=== PATIENT | male | born 1955 | race Caucasian/White ===

== ENCOUNTER 2017-03-10 14:47 | Inpatient (IN) | payer OTHER ==
[~2017-03-10] VITALS: Ht 188 cm; Wt 116.6 kg
[2017-03-10 14:50] VITALS: BP_SYST 137
[2017-03-10] MEDS ORDERED: KETOROLAC TROMETHAMINE 30 MG VIAL IVP ONE (15:15)
[2017-03-10] MEDS ORDERED: ASPIRIN 81 MG TAB.CHEW PO ONE (15:15)
[2017-03-10] MEDS ORDERED: ONDANSETRON HCL 4 MG/2 ML VIAL IVP ONE (15:15)
[2017-03-10] MEDS ORDERED: NACL 0.9% 1,000 ML IV ONE (15:15)
[2017-03-10 15:49] LABS: BASOPHILS % (AUTO) 0.6 % (0.0-2.0); EOSINOPHILS # (AUTO) 0.2 K/uL (0.0-0.4); EOSINOPHILS % (AUTO) 2.8 % (0.0-4.0); HEMATOCRIT 40.7 % (36-54); HEMOGLOBIN 13.3 g/dL (14.0-18.0); LYMPHOCYTES # (AUTO) 1.4 K/uL (1.0-5.5); LYMPHOCYTES % (AUTO) 23.7 % (20.5-51.5); MEAN CORPUSCULAR HEMOGLOBIN 28 pg (27-31); MEAN CORPUSCULAR HGB CONC 33 % (32-36); MEAN CORPUSCULAR VOLUME 85 fL (79.0-98.0); MONOCYTES # (AUTO) 0.3 K/uL (0.0-1.0); MONOCYTES % (AUTO) 5.8 % (1.7-9.3); NEUTROPHILS # (AUTO) 3.8 K/uL (1.8-7.7); NEUTROPHILS % (AUTO) 67.1 % (40.0-70.0); PLATELET COUNT (AUTO) 212 K/uL (130-430); RED BLOOD CELL COUNT(AUTO) 4.79 MIL/uL (4.2-6.2); RED CELL DISTRIBUTION WIDTH 13.9 % (9.0-15.0); WHITE BLOOD COUNT (AUTO) 5.7 K/uL (4.8-10.8)
[2017-03-10 16:01] LABS: CALCIUM 8.5 mg/dL (8.4-11.0); CREATININE 0.66 mg/dL (0.55-1.30); POTASSIUM 3.8 mmol/L (3.5-5.1)
[2017-03-10 16:08] LABS: ALBUMIN 3.4 g/dL (3.4-4.8); TOTAL BILIRUBIN 0.5 mg/dL (0.0-1.0)
[2017-03-10 16:27] LABS: PROTHROMBIN TIME 10.1 SECS (9.5-12.5)
[2017-03-10 17:11] LABS: BILIRUBIN,URINE NEGATIVE (NEGATIVE); BLOOD, URINE NEGATIVE (NEGATIVE); CLARITY/URINE CLEAR (CLEAR); COLOR,URINE YELLOW (YELLOW); GLUCOSE,URINE 3+ (NEGATIVE); KETONES,URINE 1+ (NEGATIVE); LEUKOCYTE ESTERASE ,URINE NEGATIVE (NEGATIVE); NITRITE, URINE NEGATIVE (NEGATIVE); PH,URINE 7.5 (5.0-8.0); PROTEIN URINE NEGATIVE (NEGATIVE)
[2017-03-10 17:38] LABS: BACTERIA,URINE FEW /HPF (None Seen); MUCUS,URINE None Seen /LPF (None Seen); RBC,URINE NONE SEEN /HPF (0-3); WBC,URINE 0-3 /HPF (0-3)
[2017-03-10] MEDS ORDERED: POTASSIUM CHLORIDE 20 MEQ TAB.PRT.SR PO PRN (19:30)
[2017-03-10] MEDS ORDERED: MORPHINE 2 MG/ML INJ. SYRINGE IVP PRN ×2 (19:30)
[2017-03-10] MEDS ORDERED: MAGNESIUM SULFATE 50 ML IV PRN (19:30)
[2017-03-10] MEDS ORDERED: ZOLPIDEM TARTRATE 5 MG TABLET PO PRN (19:30)
[2017-03-10] MEDS ORDERED: ACETAMINOPHEN 325 MG TABLET PO PRN (19:30)
[2017-03-10] MEDS ORDERED: DOCUSATE SODIUM 100 MG CAPSULE PO PRN (19:30)
[2017-03-10] MEDS ORDERED: DEXTROSE 50% JECT 50 ML DISP.SYRIN IVP PRN (19:30)
[2017-03-10] MEDS ORDERED: LORazepam 2 MG/ML VIAL IVP PRN (19:30)
[2017-03-10] MEDS ORDERED: ONDANSETRON HCL 4 MG/2 ML VIAL IVP PRN (19:30)
[2017-03-10 19:45] VITALS: BP_SYST 126
[2017-03-10] MEDS ORDERED: FLU VACC QS 2017-18(36MOS+)/PF 0.5 ML/SYR SYRINGE I.M. PRN (20:15)
[2017-03-10] MEDS ORDERED: METOCLOPRAMIDE HCL 10 MG/2 ML VIAL IVP ONE (20:45)
[2017-03-10] MEDS: HEPARIN SODIUM,PORCINE 5000 UNITS/ML VIAL SUBCUT SCH (21:36)
[2017-03-10] MEDS: INSULIN ASPART 100 UNITS/ML, 10 ML VIAL (NovoLOG) SUBCUT PRN (21:42)
[2017-03-11 00:41] VITALS: BP_SYST 104
[2017-03-11 04:19] VITALS: BP_SYST 98
[2017-03-11] MEDS ORDERED: METOCLOPRAMIDE HCL 10 MG/2 ML VIAL IVP SCH (06:00)
[2017-03-11] MEDS: INSULIN ASPART 100 UNITS/ML, 10 ML VIAL (NovoLOG) SUBCUT PRN ×2 (06:12→11:22)
[2017-03-11 06:39] LABS: BASOPHILS # (AUTO) 0.1 K/uL (0.0-0.2); BASOPHILS % (AUTO) 2.9 % (0.0-2.0); EOSINOPHILS # (AUTO) 0.2 K/uL (0.0-0.4); EOSINOPHILS % (AUTO) 4.2 % (0.0-4.0); HEMOGLOBIN 12.4 g/dL (14.0-18.0); LYMPHOCYTES # (AUTO) 1.4 K/uL (1.0-5.5); LYMPHOCYTES % (AUTO) 27.1 % (20.5-51.5); MEAN CORPUSCULAR HEMOGLOBIN 29 pg (27-31); MEAN CORPUSCULAR HGB CONC 34 % (32-36); MEAN CORPUSCULAR VOLUME 86 fL (79.0-98.0); MONOCYTES # (AUTO) 0.4 K/uL (0.0-1.0); MONOCYTES % (AUTO) 8.2 % (1.7-9.3); NEUTROPHILS # (AUTO) 3.1 K/uL (1.8-7.7); NEUTROPHILS % (AUTO) 57.6 % (40.0-70.0); PLATELET COUNT (AUTO) 179 K/uL (130-430); RED BLOOD CELL COUNT(AUTO) 4.33 MIL/uL (4.2-6.2); RED CELL DISTRIBUTION WIDTH 14.1 % (9.0-15.0); WHITE BLOOD COUNT (AUTO) 5.2 K/uL (4.8-10.8)
[2017-03-11 07:36] LABS: ANION GAP 4 (5-15); CALCIUM 8.8 mg/dL (8.4-11.0); CHLORIDE 106 mmol/L (98-107); CREATININE 0.73 mg/dL (0.55-1.30); GLUCOSE 281 mg/dL (70-99); POTASSIUM 4.5 mmol/L (3.5-5.1); SODIUM SERUM 140 mmol/L (136-145); UREA NITROGEN, BLOOD 20 mg/dL (8-21)
[2017-03-11 07:39] LABS: GFR AFRICAN AMERICAN 140 mL/min (>90)
[2017-03-11 08:03] VITALS: BP_SYST 124
[2017-03-11] MEDS ORDERED: MILK OF MAGNESIA 30 ML UDC PO ONE (08:15)
[2017-03-11] MEDS ORDERED: SSNOVOLOG SUBCUT (08:25)
[2017-03-11] MEDS ORDERED: METO-290 PO (08:25)
[2017-03-11] MEDS: HEPARIN SODIUM,PORCINE 5000 UNITS/ML VIAL SUBCUT SCH (08:51)
[2017-03-11 09:41] VITALS: BP_SYST 124
[2017-03-11 12:41] VITALS: BP_SYST 129
== END 2017-03-11 12:27 | disposition home or self-care (01) | DRG 48 ==
LOC: SED 14:47 → STU 19:08
PROVIDERS: ADMIT General Practice; ATTEND General Practice
DX: E11.43 Type 2 diabetes mellitus with diabetic autonomic (poly)neuropathy (principal); E11.65 Type 2 diabetes mellitus with hyperglycemia; K31.84 Gastroparesis; E66.9 Obesity, unspecified; K59.00 Constipation, unspecified; Z68.33 Body mass index [BMI] 33.0-33.9, adult
CPT/HCPCS: 36415; 70450-TC; 71010; 80048; 80053; 81000-TC; 82962; 83690-TC; 83735-TC; 84484; 85025; 85610-TC; 85730-TC; 93005; 96361; 96374; 96375; 99285; J1644; J1815; J1885; J2405; J2765; J7030; Q2037

== ENCOUNTER 2018-05-10 20:52 | Inpatient (IN) | payer OTHER ==
[~2018-05-10] VITALS: Ht 182.9 cm; Wt 94.8 kg
[~2018-05-10 20:52] MED LIST: METO-290 PO; SSNOVOLOG SUBCUT
--- NOTE | 2018-05-10 21:04 | NUR ---
Placed in room 08 . Placed on hospital monitor, blood pressure machine and pulse oximeter. To gown for exam. Side rails up.
[2018-05-10 21:05] VITALS: BP_SYST 88
--- NOTE | 2018-05-10 21:06 | NUR ---
Pt was brought in by family c/o of weakness, dizziness, and hx of falls. Pt is AAO x 4 and was wheeled into ED because of feeling weak. Pt denies N/V or fever. No other injuries/complaints per patient or noted.
--- NOTE | 2018-05-10 21:08 | NUR ---
ER Dr. Woodard at bedside examining patient.
--- NOTE | 2018-05-10 21:15 | NUR ---
# 18 gauge angiocath placed to RAC. Use of asceptic technique. Opsite placed over site. Blood return noted. Blood for lab drawn from site. Flushed with 10 cc of normal saline. No evidence of infiltration noted. Patient tolerated well.
[2018-05-10] MEDS ORDERED: NACL 0.9% 1,000 ML IV ONE ×3 (21:30→22:15)
--- NOTE | 2018-05-10 21:40 | NUR ---
Pt to CT via stretcher accompanied by ACLS RN.
[2018-05-10 21:43] LABS: BASOPHILS # (AUTO) 0.1 K/uL (0.0-0.2); BASOPHILS % (AUTO) 0.5 % (0.0-2.0); EOSINOPHILS # (AUTO) 0.2 K/uL (0.0-0.4); EOSINOPHILS % (AUTO) 1.7 % (0.0-4.0); HEMATOCRIT 38.6 % (36-54); HEMOGLOBIN 12.6 g/dL (14.0-18.0); LYMPHOCYTES # (AUTO) 1.8 K/uL (1.0-5.5); LYMPHOCYTES % (AUTO) 14.7 % (20.5-51.5); MEAN CORPUSCULAR HEMOGLOBIN 28 pg (27-31); MEAN CORPUSCULAR HGB CONC 33 % (32-36); MEAN CORPUSCULAR VOLUME 86 fL (79.0-98.0); MONOCYTES # (AUTO) 0.7 K/uL (0.0-1.0); MONOCYTES % (AUTO) 5.8 % (1.7-9.3); NEUTROPHILS # (AUTO) 9.4 K/uL (1.8-7.7); NEUTROPHILS % (AUTO) 77.3 % (40.0-70.0); PLATELET COUNT (AUTO) 245 K/uL (130-430); RED BLOOD CELL COUNT(AUTO) 4.49 MIL/uL (4.2-6.2); RED CELL DISTRIBUTION WIDTH 14.4 % (9.0-15.0); WHITE BLOOD COUNT (AUTO) 12.2 K/uL (4.8-10.8)
--- NOTE | 2018-05-10 21:45 | NUR ---
PT ON PORTABLE MONITORING TO CT. ACCOMPANIED BY RN. NO S/S OF ACUTE DISTRESS. 2L NS RUNNING PER MD.
--- NOTE | 2018-05-10 21:51 | NUR ---
Pt returned from CT in stable condition.
[2018-05-10 21:52] LABS: CALCIUM 10.1 mg/dL (8.4-11.0); POTASSIUM 4.5 mmol/L (3.5-5.1)
[2018-05-10 21:53] LABS: CREATININE 1.61 mg/dL (0.55-1.30)
[2018-05-10 21:57] LABS: ALBUMIN 3.8 g/dL (3.4-4.8); TOTAL BILIRUBIN 0.5 mg/dL (0.0-1.0)
[2018-05-10 22:02] LABS: PROTHROMBIN TIME 10.5 SECS (9.5-12.5)
--- NOTE | 2018-05-10 22:02 | NUR ---
PT CAME BACK FROM CT SCAN, WELL TOLERATED. BACK ON ER MONITORING. STARTING 3RD LITER NS AT 100ML / HR. DAUGHTER AT BEDSIDE, INFORMED BY STAFF
--- NOTE | 2018-05-10 22:04 | NUR ---
X-ray at bedside.
--- NOTE | 2018-05-10 22:12 | NUR ---
Patient states he is full code
[2018-05-10] MEDS ORDERED: VANCOMYCIN HCL 1,000 MG in NS 250 ML IV ONE (22:15)
[2018-05-10] MEDS ORDERED: VANCOMYCIN HCL 1000 MG/VIAL IV ONE (22:16)
[2018-05-10] MEDS ORDERED: CLOP300T2 PO (22:23)
[2018-05-10] MEDS ORDERED: MIDO10TA PO (22:23)
[2018-05-10] MEDS ORDERED: METF1000 PO (22:23)
[2018-05-10] MEDS ORDERED: ATOR40TA68 PO (22:23)
[2018-05-10] MEDS ORDERED: MES60 PO (22:23)
[2018-05-10] MEDS ORDERED: SITA100T11 PO (22:23)
[2018-05-10] MEDS ORDERED: XALEYE RIGHT EYE (22:23)
[2018-05-10] MEDS ORDERED: LORA10TA7 PO (22:23)
[2018-05-10] MEDS ORDERED: ASPI-1153 PO (22:24)
[2018-05-10] MEDS ORDERED: MULT-1117 PO (22:24)
[2018-05-10] MEDS ORDERED: LISI-600 PO (22:24)
--- NOTE | 2018-05-10 22:24 | NUR ---
Medication reconciliation completed with information provided by Patient. Any prior medication reconciliation on file was reviewed and corrected.
[2018-05-10] MEDS ORDERED: PIPERACILLIN/TAZO 3.375 GM in NS 50 ML IV ONE (22:30)
[2018-05-10] MEDS ORDERED: METOCLOPRAMIDE HCL 10 MG/2 ML VIAL IVP PRN (22:30)
[2018-05-10] MEDS ORDERED: INSULIN ASPART 100 UNITS/ML, 10 ML VIAL (NovoLOG) SUBCUT PRN (22:30)
[2018-05-10] MEDS: NACL 0.9% 1,000 ML IV SCH (22:30)
[2018-05-10] MEDS ORDERED: ACETAMINOPHEN 325 MG TABLET PO PRN (22:30)
[2018-05-10] MEDS ORDERED: PIPERACILLIN/TAZOBACTAM 3.375 GM/VIAL (ZOSYN) IV ONE (22:31)
--- NOTE | 2018-05-10 22:46 | NUR ---
Patient will be admitted to care of Dr. Brooke. Admitted to Telemetry unit. Will go to room 107 B. Belongings list completed. Summary report printed. Report will be given at bedside.
--- NOTE | 2018-05-10 22:47 | NUR ---
Transfer to Telemetry via ACLS protocol. Licensed nurse present. IV present no signs or symptoms of infiltration.
[2018-05-10 22:56] VITALS: BP_SYST 120
--- NOTE | 2018-05-10 22:56 | NUR ---
ADMISSION NOTE Received patient from ER via gurney, received report from RN. Patient admitted with diagnosis of hypotension, possible sepsis, hypovolemia. Patient oriented to hospital routine, call light, toileting and safety-patient verbalized understanding.
--- NOTE | 2018-05-10 23:30 | NUR ---
IVF PATIENT CAME WITH NS @ 100 ML/HR #3 BAG FROM ER. IV LINE INTACT. PATIENT MADE AWARE URINE NEEDED FOR CULTURE. PLACED CALL LIGHT WITH IN REACH. BED IN LOWEST LOCKED POSITION WITH ALARM ON.
[2018-05-11 00:46] VITALS: BP_SYST 131
--- NOTE | 2018-05-11 02:00 | NUR ---
ROUNDS PATIENT RESTING IN BED. BREATHING UNLABORED ON ROOM AIR. BED ALARM ON.
--- NOTE | 2018-05-11 04:00 | NUR ---
ROUNDS PATIENT RESTING IN BED. NO CHANGE IN CONDITION NOTED. BED ALARM ON. CALL LIGHT WITH IN REACH.
[2018-05-11 05:42] LABS: BASOPHILS # (AUTO) 0.1 K/uL (0.0-0.2); BASOPHILS % (AUTO) 0.9 % (0.0-2.0); EOSINOPHILS # (AUTO) 0.1 K/uL (0.0-0.4); HEMATOCRIT 35.6 % (36-54); HEMOGLOBIN 11.7 g/dL (14.0-18.0); LYMPHOCYTES # (AUTO) 1.9 K/uL (1.0-5.5); LYMPHOCYTES % (AUTO) 18.1 % (20.5-51.5); MEAN CORPUSCULAR HEMOGLOBIN 28 pg (27-31); MEAN CORPUSCULAR HGB CONC 33 % (32-36); MEAN CORPUSCULAR VOLUME 86 fL (79.0-98.0); MONOCYTES # (AUTO) 0.7 K/uL (0.0-1.0); MONOCYTES % (AUTO) 7.2 % (1.7-9.3); NEUTROPHILS # (AUTO) 7.5 K/uL (1.8-7.7); NEUTROPHILS % (AUTO) 72.8 % (40.0-70.0); PLATELET COUNT (AUTO) 206 K/uL (130-430); RED BLOOD CELL COUNT(AUTO) 4.15 MIL/uL (4.2-6.2); RED CELL DISTRIBUTION WIDTH 14.3 % (9.0-15.0); WHITE BLOOD COUNT (AUTO) 10.3 K/uL (4.8-10.8)
[2018-05-11 06:21] LABS: CALCIUM 9.1 mg/dL (8.4-11.0); CREATININE 1.22 mg/dL (0.55-1.30); POTASSIUM 4.2 mmol/L (3.5-5.1)
--- NOTE | 2018-05-11 06:38 | NUR ---
CLOSING NOTES PATIENT RESTING IN BED. BREATHING UNLABORED. IVF INFUSING ORDERED. IV LINE INTACT. PATIENT REMINDED OF URINE SPECIMEN NEEDED TO SEND TO LAB FOR CULTURE. PER PATIENT HE DOES NOT HAVE THE FEELING TO URINATE AT THIS TIME. PATIENT BLADDER AREA SOFT AND NOT DISTENDED AND PATIENT DENIES PAIN WHEN PRESSURE APPLIED. PATIENT NEEDS ATTENDED. CALL LIGHT WITH IN REACH. BED IN LOWEST LOCKED POSITION WITH ALARM ON.
--- NOTE | 2018-05-11 07:20 | NUR ---
OPENING NOTE At initial assessment, patient is awake, alert and oriented x4. Denies any pain/discomfort at this time. Breathing even and unlabored, patient on room air. IV site on RAC 18 G and L wrist 18 patent and intact. NS running at 100 ml/hr. Safety and fall precautions in place, bed is in lowest position and locked, side rails up x3, call light within reach, will continue to monitor.
[2018-05-11 08:00] VITALS: BP_SYST 123
[2018-05-11] MEDS: NACL 0.9% 1,000 ML IV SCH ×2 (08:39→17:09)
[2018-05-11 11:01] LABS: BILIRUBIN,URINE NEGATIVE (NEGATIVE); BLOOD, URINE NEGATIVE (NEGATIVE); CLARITY/URINE CLEAR (CLEAR); COLOR,URINE YELLOW (YELLOW); GLUCOSE,URINE NEGATIVE (NEGATIVE); KETONES,URINE TRACE (NEGATIVE); LEUKOCYTE ESTERASE ,URINE NEGATIVE (NEGATIVE); NITRITE, URINE NEGATIVE (NEGATIVE); PH,URINE 5.5 (5.0-8.0); PROTEIN URINE NEGATIVE (NEGATIVE); UROBILINOGEN,URINE 0.2 (0.2-1.0)
[2018-05-11 11:07] VITALS: BP_SYST 126
[2018-05-11 11:13] LABS: BARBITURATE, URINE NEGATIVE (NEG <=200); BENZODIAZEPINE, URINE NEGATIVE (NEG <=150); CANNABINOID, URINE NEGATIVE (NEG <=50); COCAINE, URINE NEGATIVE (NEG <=150); METHAMPHETAMINES SCREEN,URINE NEGATIVE (NEG <=500); OPIATE, URINE NEGATIVE (NEG <=100); PHENCYCLIDINE SCREEN,URINE NEGATIVE (NEG <=25); UR TRICYCLIC ANTIDEPRESSANTS NEGATIVE (NEG <=300); URINE AMPHETAMINE NEGATIVE (NEG <=500); URINE METHADONE NEGATIVE (NEG <=200); URINE OXYCODONE SCREEN NEGATIVE (NEG <=100); URINE PROPOXYPHENE SCREEN NEGATIVE (NEG <=300)
--- NOTE | 2018-05-11 11:25 | NUR ---
Nutrition Update Micah Scale 17 noted. Pt admitted for hypotension, possible sepsis, hypovolemia. Diet: [facility] BMI: 28.4 kg/m2 RD to follow per nutrition care standards.
--- NOTE | 2018-05-11 13:35 | NUR ---
ROUNDS Patient is asleep, no respiratory distress noted. IVF infusing as ordered. IV site patent and intact. AM meds tolerated well. Safety and fall precautions in place. Call light within reach, will continue to monitor.
[2018-05-11] MEDS ORDERED: MIDODRINE HCL 5 MG TABLET (PROAMATINE) PO ONE (13:45)
[2018-05-11] MEDS ORDERED: PYRIDOSTIGMINE BROMIDE 60 MG TABLET PO ONE (13:45)
--- NOTE | 2018-05-11 13:45 | NUR ---
AT BEDSIDE DR. Brooke at bedside to examine the patient.
--- NOTE | 2018-05-11 16:20 | NUR ---
ROUNDS Patient is watching TV, in stable condition, no respiratory distress noted. IVF infusing as ordered. IV site patent and intact. AM meds tolerated well. Safety and fall precautions in place. Call light within reach, will continue to monitor.
[2018-05-11 17:00] VITALS: BP_SYST 138
--- NOTE | 2018-05-11 17:06 | NUR ---
Discharge Planning/Postdoctoral Scientist MECHANICAL OXIDIZER conducted a Discharge Plan Assessment MECHANICAL OXIDIZER met with patient at bedside. Patient stated his health has been deteriorating for a year and had just decided, on the insistence of his son and daughter, to move in with his daughter and her 5 year old son. Address: [address] [place] His daughter is disabled but patient stated she daniel very well. His son is supportive and lives in [place]. Patient has 19 hours paid SS hours and a caregiver. MECHANICAL OXIDIZER discussed with patient his [employer] care which include a three year plan of injections in his left eye to save his vision. He is blind in his right eye. Patient stated he is exploring a new capitated [facility] plan as he will no longer be in [facility]. Suggested working with the Gl [employer]ant to assure continuity of care. MECHANICAL OXIDIZER provided a list of [facility] as a last resort for immediate follow up. Patient uses a FWW at home. Discussed applying for correction disability and Medicare benefits, and looking at [facility] or other snf options. MECHANICAL OXIDIZER provided patient with Social Service contact information. Postdoctoral Scientist/Case Management/Discharge Planning will remain available.
--- NOTE | 2018-05-11 18:20 | NUR ---
CLOSING NOTE Patient is awake, alert and oriented x4, denies any pain/discomfort at this time. Breathing even and unlabored. IV site remains patent and intact, IVF infusing as ordered. No further needs at this time. Safety and fall precautions observed throughout the shift, call light within reach. All needs met and anticipated throughout the shift, will endorse plan of care.
--- NOTE | 2018-05-11 19:25 | NUR ---
OPENING NOTE Received patient awake, AOx4 sitting upright in bed in no sign of distress and watching t.v. IV fluids infusing as ordered via 18G RAC. SL 18G IV Lt wrist. Daughter visiting at bedside. Bed is locked to lowest position, two side rails up, bed alarm on. Instructed on use of call light. Will monitor.
[2018-05-11 20:10] VITALS: BP_SYST 120
--- NOTE | 2018-05-11 20:35 | NUR ---
Rounds Patient was awake and administered scheduled medications. Side effects explained and he verbalized understanding. Fingers stick glucose test result was 141 and no coverage was due. He requested if the lights could be turned off so he can rest. No further needs. Will monitor.
[2018-05-11] MEDS ORDERED: ATORVASTATIN 20 MG TABLET PO SCH (21:00)
[2018-05-11] MEDS ORDERED: LATANOPROST 2.5 ML DROPS (XALATAN) RIGHT EYE SCH (21:00)
--- NOTE | 2018-05-11 22:05 | NUR ---
ROUNDS Patient awake and asked for assistance to the restroom. He is unsteady by self and was assisted; he prefers to hold the IV pole as I stand by his side to support his back. He returned to bed and had no further needs. Safety precautions in place and call light near. Will monitor.
--- NOTE | 2018-05-11 23:30 | NUR ---
ROUNDS During vital sign assessment patient reported pain to the nurse assistant analyst. I came to assess and he stated that it was tolerable. I let him know there is medication ordered/available for pain and he refused medication stating it's tolerable and added, if needs medication he will call.
[2018-05-12 00:37] VITALS: BP_SYST 138
--- NOTE | 2018-05-12 02:20 | NUR ---
ROUNDS Patient is sleeping, symmetrical rise and fall of chest, nonlabored breathing. Bed locked to lowest position and call light w/in reach. Will monitor.
--- NOTE | 2018-05-12 04:15 | NUR ---
NOTES IV fluid bag complete and replaced with new bag as ordered. Patient momentarily awakened and he indicated he had no further needs. Safety precautions in place, call light near. Will monitor.
[2018-05-12] MEDS: NACL 0.9% 1,000 ML IV SCH ×2 (04:19→13:58)
--- NOTE | 2018-05-12 06:30 | NUR ---
closing note Patient is sleeping, no sign of distress noted, nonlabored breathing. Morning fingerstick result was 141 and no coverage was due. He had no further needs, and wanted to sleep. Safety precautions in place, call light near and lights are low. Will endorse care to morning nurse.
--- NOTE | 2018-05-12 07:15 | NUR ---
OPENING NOTE At initial assessment, patient is sleeping comfortably in bed, no s/s of acute distress or discomfort. Breathing even and unlabored. IV site patent and intact, NS running at 100 ml/hr as ordered. Safety and fall precautions in place, bed is in lowest position and locked, alarm on, side rails up x2, call light within reach, will continue to monitor.
[2018-05-12 07:58] VITALS: BP_SYST 155
[2018-05-12 08:11] LABS: HEMOGLOBIN 11.8 g/dL (14.0-18.0); MEAN CORPUSCULAR VOLUME 86 fL (79.0-98.0); RED BLOOD CELL COUNT(AUTO) 4.19 MIL/uL (4.2-6.2); WHITE BLOOD COUNT (AUTO) 7.3 K/uL (4.8-10.8)
[2018-05-12 08:12] LABS: BASOPHILS % (AUTO) 0.6 % (0.0-2.0); EOSINOPHILS # (AUTO) 0.6 K/uL (0.0-0.4); EOSINOPHILS % (AUTO) 8.1 % (0.0-4.0); LYMPHOCYTES # (AUTO) 2.1 K/uL (1.0-5.5); MEAN CORPUSCULAR HEMOGLOBIN 28 pg (27-31); MEAN CORPUSCULAR HGB CONC 33 % (32-36); MONOCYTES # (AUTO) 0.4 K/uL (0.0-1.0); MONOCYTES % (AUTO) 5.1 % (1.7-9.3); NEUTROPHILS # (AUTO) 4.2 K/uL (1.8-7.7); NEUTROPHILS % (AUTO) 57.2 % (40.0-70.0); PLATELET COUNT (AUTO) 189 K/uL (130-430); RED CELL DISTRIBUTION WIDTH 14.6 % (9.0-15.0)
[2018-05-12 08:27] LABS: CREATININE 0.95 mg/dL (0.55-1.30); POTASSIUM 4.5 mmol/L (3.5-5.1)
[2018-05-12 08:28] LABS: ALBUMIN 3.3 g/dL (3.4-4.8); THYROID STIMULATING HORMONE 1.13 uIu/mL (0.34-4.82); TOTAL BILIRUBIN 0.3 mg/dL (0.0-1.0)
[2018-05-12] MEDS ORDERED: MIDODRINE HCL 5 MG TABLET (PROAMATINE) PO SCH (09:00)
[2018-05-12] MEDS ORDERED: PYRIDOSTIGMINE BROMIDE 60 MG TABLET PO SCH (09:00)
[2018-05-12] MEDS ORDERED: ASPIRIN 81 MG TABLET(ECOTRIN) PO SCH (09:00)
[2018-05-12] MEDS ORDERED: CLOPIDOGREL BISULFATE 75 MG TABLET PO SCH (09:00)
--- NOTE | 2018-05-12 12:21 | NUR ---
ROUNDS Patient is awake, eating lunch at this time. No c/o pain/discomfort at this time. Breathing even and unlabored. AM meds taken this morning and tolerated well. IV site patent and intact, IVF infusing as ordered. Safety and fall precautions in place, call light within reach, will continue to monitor.
[2018-05-12 12:43] VITALS: BP_SYST 144
--- NOTE | 2018-05-12 14:45 | NUR ---
Dietitian Recommendations * Recommend continuing [facility] diet per LP, RD Please refer to Nutrition Assessment for details.
--- NOTE | 2018-05-12 14:47 | NUR ---
ROUNDS Patient is sleeping, no s/s of acute distress/discomfort. No respiratory distress noted. IVF infusing as ordered. Call light within reach, will continue to monitor.
--- NOTE | 2018-05-12 16:32 | NUR ---
ROUNDS Patient is resting with eyes closed but easily arousable, no respiratory distress noted. Denies any pain/discomfort at this time. No infection/infiltration noted on the IV site. IVF running as ordered. Safety and fall precautions in place, call light within reach, will continue to monitor.
[2018-05-12 16:48] VITALS: BP_SYST 128
--- NOTE | 2018-05-12 16:54 | NUR ---
MD LJ osei regarding patient and family's concern regarding wanting home health services, awaiting for call back.
--- NOTE | 2018-05-12 16:56 | NUR ---
SPOKE WITH DR. BROOKE Spoke with Dr. Brooke and informed MD regarding patient's concern regarding wanting to receive home health services. Dr. Brooke with no new orders at this time and per MD, patient does not qualify for home health and patient to follow up with primary care physician.
[2018-05-12 17:08] VITALS: BP_SYST 128
--- NOTE | 2018-05-12 18:00 | NUR ---
D/C Patient Patient given medication reconciliation form and D/C instructions. Exit Care provided. Patient verbalized understanding. MD discussed with patient the results and treatment provided. Ambulatory with steady gait for discharge to home. Patient in stable condition, ID band removed. IV catheter removed, intact and dressing applied, no active bleeding. Patient educated on pain management. All belongings sent with patient. Assisted patient out via wheelchair. Family with patient.
== END 2018-05-12 18:00 | disposition home or self-care (01) | DRG 42 ==
LOC: SED 20:52 → STU 22:29
PROVIDERS: ADMIT Internal Medicine; ATTEND Internal Medicine
DX: G70.00 Myasthenia gravis without (acute) exacerbation (principal); N17.0 Acute kidney failure with tubular necrosis; I95.9 Hypotension, unspecified; I10 Essential (primary) hypertension; E11.9 Type 2 diabetes mellitus without complications; E78.5 Hyperlipidemia, unspecified; H40.9 Unspecified glaucoma; M79.7 Fibromyalgia; H54.61 Unqualified visual loss, right eye, normal vision left eye; Z98.52 Vasectomy status; Z79.899 Other long term (current) drug therapy; Z79.82 Long term (current) use of aspirin; Z86.73 Personal history of transient ischemic attack (TIA), and cerebral infarction without residual deficits
CPT/HCPCS: 36415; 70450-TC; 71045; 80048; 80053; 80307; 81003; 82550-TC; 82962; 83605; 83735-TC; 83880; 84443-TC; 84484; 85025; 85610-TC; 85730-TC; 93005; 93306; 93880; 96361; 96365; 96366; 96368; 99291; G0378; J2543; J3370; J7030

== ENCOUNTER 2018-05-25 22:14 | Emergency (ER) | payer OTHER ==
[~2018-05-25] VITALS: Ht 182.9 cm; Wt 95.3 kg
[~2018-05-25 22:14] MED LIST changes: +ASPI-1153 PO; +ATOR40TA68 PO; +CLOP300T2 PO; +LORA10TA7 PO; +MES60 PO; +MIDO10TA PO; +MULT-1117 PO; -SSNOVOLOG SUBCUT; +XALEYE RIGHT EYE
[2018-05-25 22:16] VITALS: BP_SYST 124
[2018-05-25] MEDS ORDERED: NACL 0.9% 1,000 ML IV ONE (22:45)
[2018-05-25 23:03] LABS: CALCIUM 9.6 mg/dL (8.4-11.0); CREATININE 1.01 mg/dL (0.55-1.30); POTASSIUM 3.9 mmol/L (3.5-5.1)
[2018-05-25 23:05] LABS: INR 1.1 (0.80-1.20); PROTHROMBIN TIME 10.8 SECS (9.5-12.5)
[2018-05-25 23:08] LABS: BASOPHILS # (AUTO) 0.1 K/uL (0.0-0.2); EOSINOPHILS # (AUTO) 0.3 K/uL (0.0-0.4); EOSINOPHILS % (AUTO) 3.9 % (0.0-4.0); HEMATOCRIT 38.8 % (36-54); HEMOGLOBIN 12.7 g/dL (14.0-18.0); LYMPHOCYTES # (AUTO) 1.7 K/uL (1.0-5.5); LYMPHOCYTES % (AUTO) 23.3 % (20.5-51.5); MEAN CORPUSCULAR HEMOGLOBIN 28 pg (27-31); MEAN CORPUSCULAR HGB CONC 33 % (32-36); MEAN CORPUSCULAR VOLUME 86 fL (79.0-98.0); MONOCYTES # (AUTO) 0.5 K/uL (0.0-1.0); MONOCYTES % (AUTO) 6.9 % (1.7-9.3); NEUTROPHILS # (AUTO) 4.7 K/uL (1.8-7.7); NEUTROPHILS % (AUTO) 64.9 % (40.0-70.0); PLATELET COUNT (AUTO) 223 K/uL (130-430); RED BLOOD CELL COUNT(AUTO) 4.49 MIL/uL (4.2-6.2); RED CELL DISTRIBUTION WIDTH 14.5 % (9.0-15.0); WHITE BLOOD COUNT (AUTO) 7.3 K/uL (4.8-10.8)
[2018-05-25 23:13] LABS: ALBUMIN 3.7 g/dL (3.4-4.8); TOTAL BILIRUBIN 0.4 mg/dL (0.0-1.0)
[2018-05-26 00:05] VITALS: BP_SYST 139
== END 2018-05-26 00:05 | disposition home or self-care (01) ==
LOC: SED 22:14
DX: R53.1 Weakness (principal); K21.9 Gastro-esophageal reflux disease without esophagitis; E11.9 Type 2 diabetes mellitus without complications; I10 Essential (primary) hypertension; M79.7 Fibromyalgia; Z90.49 Acquired absence of other specified parts of digestive tract; Z79.82 Long term (current) use of aspirin; Z79.899 Other long term (current) drug therapy
CPT/HCPCS: 36415; 71045; 80053; 82550; 83880; 84484; 85025; 85610; 85730; 93005; 96360; 99284; J7030

== ENCOUNTER 2018-12-12 14:27 | Inpatient (IN) | payer MEDICAID, OTHER ==
[~2018-12-12] VITALS: Ht 182.9 cm; Wt 96.0 kg
--- NOTE | 2018-12-12 14:35 | NUR ---
Patient to ER bed 03 to gown for evaluation. Side rails up.
[2018-12-12 14:38] VITALS: BP_SYST 125
--- NOTE | 2018-12-12 14:40 | NUR ---
Pt brought by ambulance, A&Ox4, pt presents to ER with generalized weakness during the last couple days, pt has hx of chronic lower back pain , pt states she has not get up from bed to avoid pain, pt denies chest pain , skin pink and warm, cap refill <3, VSS,respirations even and unlabored,denies N/V, follows commands, will continue to monitor, Addendum: 12/12/18 at 1727 by [email or web address] Per paramedics pt had low BP prior to arrival and one episode of confusion, BP 137/58 at this time,pt A&Ox3, at this time.
--- NOTE | 2018-12-12 14:46 | NUR ---
Dr Mathew at bedside examining patient
[2018-12-12] MEDS ORDERED: NS 500 ML IV ONE (15:00)
--- NOTE | 2018-12-12 15:00 | NUR ---
Pt stood up to urinate using urinal, well tolerated, VSS.
[2018-12-12 15:51] LABS: BILIRUBIN,URINE NEGATIVE (NEGATIVE); BLOOD, URINE NEGATIVE (NEGATIVE); CLARITY/URINE CLEAR (CLEAR); COLOR,URINE YELLOW (YELLOW); GLUCOSE,URINE NEGATIVE (NEGATIVE); KETONES,URINE NEGATIVE (NEGATIVE); LEUKOCYTE ESTERASE ,URINE NEGATIVE (NEGATIVE); NITRITE, URINE NEGATIVE (NEGATIVE); PROTEIN URINE NEGATIVE (NEGATIVE); UROBILINOGEN,URINE 0.2 (0.2-1.0)
[2018-12-12 16:09] LABS: BASOPHILS # (AUTO) 0.1 K/uL (0.0-0.2); BASOPHILS % (AUTO) 0.9 % (0.0-2.0); EOSINOPHILS # (AUTO) 0.3 K/uL (0.0-0.4); EOSINOPHILS % (AUTO) 4.4 % (0.0-4.0); HEMATOCRIT 37.3 % (36-54); HEMOGLOBIN 12.4 g/dL (14.0-18.0); LYMPHOCYTES # (AUTO) 1.7 K/uL (1.0-5.5); LYMPHOCYTES % (AUTO) 26.8 % (20.5-51.5); MEAN CORPUSCULAR HEMOGLOBIN 28 pg (27-31); MEAN CORPUSCULAR HGB CONC 33 % (32-36); MEAN CORPUSCULAR VOLUME 85 fL (79.0-98.0); MONOCYTES # (AUTO) 0.5 K/uL (0.0-1.0); MONOCYTES % (AUTO) 8.3 % (1.7-9.3); NEUTROPHILS # (AUTO) 3.8 K/uL (1.8-7.7); NEUTROPHILS % (AUTO) 59.6 % (40.0-70.0); PLATELET COUNT (AUTO) 184 K/uL (130-430); RED BLOOD CELL COUNT(AUTO) 4.37 MIL/uL (4.2-6.2); RED CELL DISTRIBUTION WIDTH 15.3 % (9.0-15.0); WHITE BLOOD COUNT (AUTO) 6.4 K/uL (4.8-10.8)
[2018-12-12 16:18] LABS: INR 0.9 (0.80-1.20); PROTHROMBIN TIME 9.7 SECS (9.5-12.5)
--- NOTE | 2018-12-12 16:24 | NUR ---
Pt off the unit for CT
[2018-12-12 16:25] LABS: CALCIUM 9.3 mg/dL (8.4-11.0); CREATININE 0.81 mg/dL (0.55-1.30); POTASSIUM 4.2 mmol/L (3.5-5.1)
[2018-12-12 16:32] LABS: ALBUMIN 3.4 g/dL (3.4-4.8); TOTAL BILIRUBIN 0.4 mg/dL (0.0-1.0)
--- NOTE | 2018-12-12 16:34 | NUR ---
Pt returned from CT on stable condition
--- NOTE | 2018-12-12 17:00 | NUR ---
Pt resting at this time, A&Ox3, VSS, respirations even and unlabored .
--- NOTE | 2018-12-12 17:30 | NUR ---
Pt on stable condition, resting at this time, VS WNL.
[2018-12-12] MEDS ORDERED: VITD2000 PO (17:53)
[2018-12-12] MEDS ORDERED: METF1000 PO (17:54)
[2018-12-12] MEDS: metFORMIN HCL 500 MG TABLET PO SCH (18:00)
--- NOTE | 2018-12-12 18:23 | NUR ---
ADMISSION NOTE Received patient from ER via mickey, received report from Saloni SOLOMON. Patient admitted with diagnosis of TIA. Patient oriented to hospital routine, call light, toileting and safety-patient verbalized understanding.
--- NOTE | 2018-12-12 18:32 | NUR ---
Patient will be admitted to care of Marleny Arroyo Admitted to Tele unit. Will go to room 101B. Belongings list completed. Summary report printed. Report will be given at bedside.
[2018-12-12 21:00] VITALS: BP_SYST 96
[2018-12-12] MEDS: LATANOPROST 2.5 ML DROPS (XALATAN) RIGHT EYE SCH (21:00)
--- NOTE | 2018-12-12 21:00 | NUR ---
ADMISSION NOTE REPORT RECEIVED ON ADMISSION PT AT THIS TIME FROM AN. PT RECEIVED IN BED, AAOX4, AND ABLE TO VERBALIZE NEEDS. VSS, NO S/S OF ACUTE DISTRESS NOTED. PT ON RA. SR ON MONITOR. RFA 22G TO SL. PT DENIES ANY PAIN OR DISCOMFORT, STATES THAT "I AM JUST TIRED". PT ASSISTED TO THE BATHROOM AT THIS TIME. ABLE TO AMBULATE STEADILY TO BATHROOM WITH ASSIST. NO OTHER NEEDS VERBALIZED PER PT. HOB ELEVATED, BED IN LOWEST POSITION, CALL LIGHT IN REACH. WILL CONTINUE TO MONITOR PT.
--- NOTE | 2018-12-12 21:30 | NUR ---
MEDICATION PASS PER PT HE DOES NOT TAKE METFORMIN AT HOME. BS 183 AT THIS TIME AND PER PT HE CHOOSES TO REFUSE MEDICATION. PT ALSO STATES THAT HE NO LONGER TAKES THE XALATAN EYE DROPS THAT WERE ORDERED AT HOME. EYE DROPS NOT ADMINISTERED. WILL UPDATE MED REQ AND ADVISE AM SHIFT TO MAKE MD AWARE. WILL CONTINUE TO MONITOR PT.
[2018-12-12] MEDS: METOCLOPRAMIDE HCL 10 MG TABLET PO SCH (21:47)
[2018-12-12] MEDS: ATORVASTATIN 20 MG TABLET PO SCH (21:47)
[2018-12-12] MEDS: D5/0.45 NS 1,000 ML IV SCH (21:48)
[2018-12-13 00:58] VITALS: BP_SYST 118
--- NOTE | 2018-12-13 02:02 | NUR ---
BATHROOM PT ASSISTED TO BATHROOM AT THIS TIME. PT AMBULATED STEADILY TO BATHROOM. ASSISTED BACK TO BED AND IVF RECONNECTED. NO OTHER NEEDS NOTED AT THIS TIME. WILL CONTINUE TO MONITOR PT.
--- NOTE | 2018-12-13 04:13 | NUR ---
RN ROUNDS PT RESTING COMFORTABLY IN BED WITH EYES CLOSED. BREATHING IS EVEN AND UNLABORED ON RA. WILL CONTINUE TO MONITOR PT.
--- NOTE | 2018-12-13 07:15 | NUR ---
SHIFT CHANGE: Received SBAR report and plan of care from night RN
[2018-12-13 07:23] LABS: ALBUMIN 3.1 g/dL (3.4-4.8); CREATININE 0.73 mg/dL (0.55-1.30); POTASSIUM 3.8 mmol/L (3.5-5.1); TOTAL BILIRUBIN 0.4 mg/dL (0.0-1.0)
--- NOTE | 2018-12-13 07:31 | NUR ---
ENDORSEMENT BEDSIDE REPORT GIVEN TO AIDAN RN USING SBAR APPROACH. NO S/S OF ACUTE DISTRESS NOTED.
[2018-12-13 07:37] LABS: BASOPHILS # (AUTO) 0.1 K/uL (0.0-0.2); BASOPHILS % (AUTO) 1.2 % (0.0-2.0); EOSINOPHILS # (AUTO) 0.3 K/uL (0.0-0.4); EOSINOPHILS % (AUTO) 5.1 % (0.0-4.0); HEMATOCRIT 34.7 % (36-54); HEMOGLOBIN 11.6 g/dL (14.0-18.0); LYMPHOCYTES # (AUTO) 2.4 K/uL (1.0-5.5); LYMPHOCYTES % (AUTO) 43.6 % (20.5-51.5); MEAN CORPUSCULAR HEMOGLOBIN 29 pg (27-31); MEAN CORPUSCULAR HGB CONC 34 % (32-36); MEAN CORPUSCULAR VOLUME 85 fL (79.0-98.0); MONOCYTES # (AUTO) 0.5 K/uL (0.0-1.0); MONOCYTES % (AUTO) 8.4 % (1.7-9.3); NEUTROPHILS # (AUTO) 2.3 K/uL (1.8-7.7); NEUTROPHILS % (AUTO) 41.7 % (40.0-70.0); PLATELET COUNT (AUTO) 163 K/uL (130-430); RED BLOOD CELL COUNT(AUTO) 4.08 MIL/uL (4.2-6.2); RED CELL DISTRIBUTION WIDTH 15.2 % (9.0-15.0); WHITE BLOOD COUNT (AUTO) 5.5 K/uL (4.8-10.8)
[2018-12-13 08:00] VITALS: BP_SYST 102
[2018-12-13] MEDS: metFORMIN HCL 500 MG TABLET PO SCH ×2 (08:00→16:30)
[2018-12-13] MEDS: LORATADINE 10 MG TABLET PO SCH (08:59)
[2018-12-13] MEDS: CLOPIDOGREL BISULFATE 75 MG TABLET PO SCH (08:59)
[2018-12-13] MEDS: MULTIVITAMINS TAB 1 TABLET PO SCH (08:59)
[2018-12-13] MEDS: METOCLOPRAMIDE HCL 10 MG TABLET PO SCH ×3 (09:00→21:53)
[2018-12-13] MEDS: MIDODRINE HCL 5 MG TABLET (PROAMATINE) PO SCH (09:00)
[2018-12-13] MEDS: ASPIRIN 81 MG TABLET(ECOTRIN) PO SCH (09:00)
[2018-12-13] MEDS: CHOLECALCIFEROL (VITAMIN D3) 2,000 UNIT TABLET PO SCH (09:00)
--- NOTE | 2018-12-13 09:00 | NUR ---
ROUNDS: Patient remains AAOx4, verbal and ambulatory. Patient is resting in bed with no complain of pain, denies SOB and chest pain. Patient is refusing ordered metformin and accuchecks stating that its not needed and that he only checks his blood sugar 1x per day at home since his DM is controlled. Patient is on room air only, breathing is even and unlabored, no signs of distress noted, will continue to monitor.
[2018-12-13] MEDS: PYRIDOSTIGMINE BROMIDE 60 MG TABLET PO SCH (09:01)
--- NOTE | 2018-12-13 09:12 | NUR ---
Neuro consult called: for Dr. Diehl, regarding TIA, ordered by Dr. Carl, spoke with Janessa. Told Janessa that Dr. Diehl was on suspension and what need to take care of paperwork first.
--- NOTE | 2018-12-13 11:00 | NUR ---
ROUNDS: Patient resting in bed, AAOx4, verbal and able to make his needs known. Patient BP slightly low this morning, midodrine administered as ordered. Patient denies pain at this time. All needs are met, will continue to monitor.
[2018-12-13 12:30] VITALS: BP_SYST 142
--- NOTE | 2018-12-13 13:00 | NUR ---
ROUNDS: Patient resting in bed with eyes closed, breathing is even and unlabored, no signs of distress noted, will continue to monitor.
[2018-12-13] MEDS: D5/0.45 NS 1,000 ML IV SCH (14:25)
--- NOTE | 2018-12-13 15:00 | NUR ---
ROUNDS: Patient resting in bed, breathing is even and unlabored, O2 sat>92 on room air. No signs of distress noted, will continue to monitor.
[2018-12-13 16:19] VITALS: BP_SYST 122
--- NOTE | 2018-12-13 16:33 | NUR ---
Patient continues to refuse accuchecks and metformin PO. Patient states that his DM is well controlled and he follows a routine at home where he only checks his blood sugar once per day. I educated patient on the importance of monitoring his blood sugar and asked if we could follow our routine while he was here in hospital but patient refused.
--- NOTE | 2018-12-13 18:04 | NUR ---
ROUNDS: Patient AAOx4, verbal and ambulatory. No BM so far this shift, patient urinating normally. Patient on room air, no SOB, no Chest pain, no signs of distress noted, breathing is even and unlabored. Will continue to monitor.
[2018-12-13 19:00] VITALS: BP_SYST 115
--- NOTE | 2018-12-13 19:31 | NUR ---
ENDORSEMENT: Bedside SBAR report given and plan of care endorsed to awake overnight counselor MST RN
[2018-12-13 20:00] VITALS: BP_SYST 115
[2018-12-13] MEDS: LATANOPROST 2.5 ML DROPS (XALATAN) RIGHT EYE SCH (21:00)
[2018-12-13] MEDS: ATORVASTATIN 20 MG TABLET PO SCH (21:53)
--- NOTE | 2018-12-13 21:59 | NUR ---
accucheck done and the bllod sugar 217mg/dl. patient is ivf d51/[address] Carl paged to inform about the patient,s blod sugar and clarification of orders.
--- NOTE | 2018-12-13 22:01 | NUR ---
Paged Hayden Tabor s/w Matt
--- NOTE | 2018-12-13 22:19 | NUR ---
Second call for Hayden Tabor s/w Matt
[2018-12-13] MEDS ORDERED: DEXTROSE 50% JECT 50 ML DISP.SYRIN IVP PRN (22:45)
[2018-12-13] MEDS ORDERED: GLUCOSE 15 GM GEL (in 37.5 GM TUBE) PO PRN (22:45)
--- NOTE | 2018-12-13 22:45 | NUR ---
DR COOK CALLED BACK AND WITH ORDERS
--- NOTE | 2018-12-14 | NUR ---
AWAKE. DENIES DISTRESS, PAIN, SOB. PLEASANT. ASSISTED PT IN FLUFFING UP PILLOW. STATES HE CAN'T GET HIS ARMS UP. THANKFUL.
[2018-12-14] MEDS: 0.45% NACL 1,000 ML IV SCH ×2 (01:14→21:34)
[2018-12-14 01:38] VITALS: BP_SYST 102
--- NOTE | 2018-12-14 06:30 | NUR ---
SLEPT FOR LONG PERIODS OF TIME. CONVERSANT. ASSISTED TO BATHROOM TO URINATE. NO COMPLAINTS OFFERED AT THIS TIME. ACCU-CHEK 102, NO INSULIN COV DUE. REMAINS IN GUARDED CONDITION.
[2018-12-14] MEDS: INSULIN REGULAR, HUMAN 100 UNITS/ML, 10 ML VIAL (humuLIN R) SUBCUT PRN ×2 (06:33→21:41)
[2018-12-14 07:55] VITALS: BP_SYST 96
[2018-12-14] MEDS: metFORMIN HCL 500 MG TABLET PO SCH ×2 (08:00→16:43)
--- NOTE | 2018-12-14 08:00 | NUR ---
am notes received pt in bed a/ox4. res even and unlabored. vitals stable , not in res distress. safety and fall precautions maintained . sr on tele. poc discussed with pt verbalized under standing.needs attended. will continue to monitor. Addendum: 12/14/18 at 1527 by Nimo Carlisle RN pt able to chew his food .pt denies any difficulty in swallowing. no s/s of neuro deficit noted. will continue to monitor
[2018-12-14] MEDS: CLOPIDOGREL BISULFATE 75 MG TABLET PO SCH (10:06)
[2018-12-14] MEDS: CHOLECALCIFEROL (VITAMIN D3) 2,000 UNIT TABLET PO SCH (10:06)
[2018-12-14] MEDS: MIDODRINE HCL 5 MG TABLET (PROAMATINE) PO SCH (10:07)
[2018-12-14] MEDS: METOCLOPRAMIDE HCL 10 MG TABLET PO SCH ×4 (10:07→21:35)
[2018-12-14] MEDS: ASPIRIN 81 MG TABLET(ECOTRIN) PO SCH (10:07)
[2018-12-14] MEDS: PYRIDOSTIGMINE BROMIDE 60 MG TABLET PO SCH (10:07)
[2018-12-14] MEDS: MULTIVITAMINS TAB 1 TABLET PO SCH (10:07)
[2018-12-14] MEDS: LORATADINE 10 MG TABLET PO SCH (10:08)
--- NOTE | 2018-12-14 10:17 | NUR ---
Nutrition Update Micah Scale 16 noted. Pt admitted for TIA. Diet: [facility] BMI: 28.7 kg/m2 RD to follow per nutrition care standards.
--- NOTE | 2018-12-14 10:50 | NUR ---
Patient and RN requested to attempt the Physical Therapy evaluation later because the patient is tired and has back pain after having his MRI and would like to rest.
--- NOTE | 2018-12-14 11:10 | NUR ---
md visit seen by dr connell. spoke to case management specialist nancy. franco neurologist dr naveen moss to see pt Addendum: 12/14/18 at 1930 by Nmio Carlisle RN dr connell saw result of MRI brain during rounds
[2018-12-14 12:41] VITALS: BP_SYST 126
--- NOTE | 2018-12-14 13:45 | NUR ---
physical therapy pt stable walked with physical therapy . tolerated well. no s/ s of distress noted
--- NOTE | 2018-12-14 14:46 | NUR ---
DC Planning: Per dr. Farr dcp to home with HH vs snf tomorrow pending PT eval and neuro consult. -- Ame, NACHO[facility] made aware. No transfer to network today, Ame will call back for update and assisting with the dc. Ame # [phone].
--- NOTE | 2018-12-14 15:30 | NUR ---
rounds pt stable not in acute distress. denies any pain or orther discomfort. needs attended will continue to monitor
[2018-12-14 17:29] VITALS: BP_SYST 156
--- NOTE | 2018-12-14 18:45 | NUR ---
closing notes pt stable. resting comfortably. denies any pain or orther discomfort. denies any difficulty in swallowing. denies any numbness or tingling in hands and legs. needs attended.fall and safety precaution maintained.will continue to monitor
--- NOTE | 2018-12-14 19:05 | NUR ---
Follow up Consult made to Dr. Diehl, s/w Davida, RE: TIA, ordered by Hayden Tabor
--- NOTE | 2018-12-14 19:11 | NUR ---
paged doctor rolando . exchange put him on the phone charge nurse spoke with him
--- NOTE | 2018-12-14 19:15 | NUR ---
called back dr marshall called back spoke to charge nurse robles. mri brain result informed to dr marshall by charge nurse , new order received. Addendum: 12/14/18 at 1940 by Nimo Carlisle RN dr marshall told margaret charge nurse that he will come see joanne judd
[2018-12-14 19:45] VITALS: BP_SYST 118
--- NOTE | 2018-12-14 19:45 | NUR ---
INITIAL NOTE AT INITIAL ASSESSMENT, PATIENT IS RESTING IN BED, STABLE, NO SIGNS OF RESPIRATORY DISTRESS. PATIENT VERBALIZES MILD, CHRONIC BACK PAIN, BUT REFUSES PAIN MEDICATION OFFERED. PLAN OF CARE FOR THE EVENING IS COMMUNICATED WITH THE PATIENT. PATIENT SUCCESSFULLY DEMONSTRATES USAGE OF CALL LIGHT. FALL, SAFETY, NEUROLOGICAL, AND RESPIRATORY PRECAUTIONS WILL BE IN PLACE THROUGHOUT THE SHIFT. NEUROLOGICAL ASSESSMENTS WILL BE COMPLETED AT LEAST [id number] THROUGHOUT THE SHIFT. BED IS LOCKED, ALARMED, AND AT THE LOWEST LEVEL.
[2018-12-14] MEDS: LATANOPROST 2.5 ML DROPS (XALATAN) RIGHT EYE SCH (21:00)
[2018-12-14] MEDS: ATORVASTATIN 20 MG TABLET PO SCH (21:35)
--- NOTE | 2018-12-14 21:45 | NUR ---
NOTE PATIENT'S BLOOD SUGAR CHECK AT THIS TIME IS 154, HE IS REFUSING INSULIN COVERAGE ORDERED BY MD DESPITE EDUCATIONAL EFFORTS. HE IS OTHERWISE STABLE, NO SIGNS OF RESPIRATORY DISTRESS, HE IS NOT SYMPTOMATIC OF HYPERGLYCEMIA. CALL LIGHT IS PLACED WITHIN REACH. BED IS LOCKED, ALARMED, AND AT THE LOWEST LEVEL.
[2018-12-14 23:32] VITALS: BP_SYST 121
--- NOTE | 2018-12-14 23:45 | NUR ---
NOTE PATIENT IS SLEEPING, STABLE, NO SIGNS OF RESPIRATORY DISTRESS. CALL LIGHT IS WITHIN REACH. BED IS LOCKED, ALARMED, AND AT THE LOWEST LEVEL.
--- NOTE | 2018-12-15 01:45 | NUR ---
NOTE PATIENT IS RESTING IN BED, STABLE, NO SIGNS OF RESPIRATORY DISTRESS. CALL LIGHT IS WITHIN REACH. BED IS LOCKED, ALARMED, AND AT THE LOWEST LEVEL.
--- NOTE | 2018-12-15 03:40 | NUR ---
NOTE PATIENT IS SLEEPING, STABLE, NO SIGNS OF RESPIRATORY DISTRESS. CALL LIGHT IS WITHIN REACH. BED IS LOCKED, ALARMED, AND AT THE LOWEST LEVEL.
--- NOTE | 2018-12-15 05:00 | NUR ---
CHG BATH #1 HYGIENE CARE AND CHG BATH #1 GIVEN AT THIS TIME. PATIENT TOLERATED WELL. HE IS OFFERED SNACKS BEFORE HE IS PLACED ON NPO STATUS, PATIENT REFUSED SNACKS DESPITE KNOWING THAT HE WILL BE NPO STARTING 0600 AM UNTIL AFTER HIS PROCEDURE. HE IS REPOSITIONED FOR COMFORT. CALL LIGHT IS WITHIN REACH. BED IS LOCKED, ALARMED, AND AT THE LOWEST LEVEL. Addendum: 12/15/18 at 0713 by Danish Hillman RN NOT INTENDED FOR DIFFERENT PATIENT
--- NOTE | 2018-12-15 05:40 | NUR ---
NOTE PATIENT IS SLEEPING, STABLE, NO SIGNS OF RESPIRATORY DISTRESS. CALL LIGHT IS WITHIN REACH. BED IS LOCKED, ALARMED, AND AT THE LOWEST LEVEL.
--- NOTE | 2018-12-15 06:00 | NUR ---
NPO STATUS PATIENT IS NOT PLACED ON NPO STATUS. PATIENT VERBALIZES UNDERSTANDING HE WILL BE NPO UNTIL AFTER HIS PROCEDURE. NPO CONE PLACED AT BEDSIDE FOR REMINDER. Addendum: 12/15/18 at 0713 by Danish Hillman RN NOTE INTENDED FOR DIFFERENT PATIENT
--- NOTE | 2018-12-15 06:50 | NUR ---
CLOSING NOTE BLOOD SUGAR CHECK AT THIS TIME REQUIRES NO INSULIN COVERAGE PER SSI ORDERED BY MD. PATIENT SLEPT WELL THROUGHOUT THE SHIFT. HE HAS BEEN NPO SINCE 0600. AT THIS TIME, PATIENT IS RESTING IN BED, STABLE, NO SIGNS OF RESPIRATORY DISTRESS. CALL LIGHT IS WITHIN REACH. BED IS LOCKED, ALARMED, AND AT THE LOWEST LEVEL. FALL, SAFETY, ISOLATION, AND RESPIRATORY PRECAUTIONS HAVE BEEN IN PLACE THROUGHOUT THE SHIFT. WILL CONTINUE TO MONITOR UNTIL SHIFT REPORT IS GIVEN AT BEDSIDE TO AM NURSE. Addendum: 12/15/18 at 0714 by Danish Hillman RN PATIENT WAS NOT NPO OR ON ISOLATION PRECAUTIONS
--- NOTE | 2018-12-15 07:45 | NUR ---
Opening notes, REceived pt in bed, pt is aaox1, denies pain, no sob, no resp distress. pt has no fever. iv fluids infusing well. safety precaution in place. call light in reach. bed in low position. bed alarm on. will cont to monitor. Addendum: 12/15/18 at 0837 by Harpreet Prieto RN Correction: pt is aaox4.
[2018-12-15 07:55] VITALS: BP_SYST 112
[2018-12-15] MEDS: metFORMIN HCL 500 MG TABLET PO SCH ×2 (08:00→17:16)
[2018-12-15] MEDS: METOCLOPRAMIDE HCL 10 MG TABLET PO SCH ×2 (08:24→15:37)
[2018-12-15] MEDS: MIDODRINE HCL 5 MG TABLET (PROAMATINE) PO SCH (08:24)
[2018-12-15] MEDS: CLOPIDOGREL BISULFATE 75 MG TABLET PO SCH (08:24)
[2018-12-15] MEDS: PYRIDOSTIGMINE BROMIDE 60 MG TABLET PO SCH (08:24)
[2018-12-15] MEDS: ASPIRIN 81 MG TABLET(ECOTRIN) PO SCH (08:24)
[2018-12-15] MEDS: CHOLECALCIFEROL (VITAMIN D3) 2,000 UNIT TABLET PO SCH (08:24)
[2018-12-15] MEDS: MULTIVITAMINS TAB 1 TABLET PO SCH (08:24)
[2018-12-15] MEDS: LORATADINE 10 MG TABLET PO SCH (08:25)
--- NOTE | 2018-12-15 09:30 | NUR ---
pt assisted to the bathroom to void. pt tolerated well. Addendum: 12/15/18 at 1651 by Harpreet Prieto RN Pt ambulated with standby assist.
--- NOTE | 2018-12-15 10:30 | NUR ---
PATIENT SEEN AMBULATING WITH P.T. IN THE HALLWAY.
--- NOTE | 2018-12-15 11:00 | NUR ---
pt taken to mri by control room technician. pt on stable condition.
[2018-12-15] MEDS ORDERED: GADOPENTETATE DIMEGLUMINE 15 ML VIAL IV ONE (11:21)
[2018-12-15 13:22] VITALS: BP_SYST 132
--- NOTE | 2018-12-15 13:53 | NUR ---
pt in bed, sleeping comfortably. no s/s of pain, no sob.
[2018-12-15] MEDS: 0.45% NACL 1,000 ML IV SCH (14:19)
--- NOTE | 2018-12-15 15:38 | NUR ---
DR COOK HERE AND SEEN PTMD SAID PT CAN GO HOME WITH [facility] FOR P.T.
--- NOTE | 2018-12-15 15:40 | NUR ---
PT AMBULATED TO THE BATHROOM , AMBULATED BY HIMSELF WITH STANDBY ASSIST. NO COMPLAIN OF SLIGHT DIZZINESS AT THIS TIME. PT IS AWARE THAT HE IS BEING DISCHARGE TODAY.
[2018-12-15] MEDS ORDERED: METO-290 PO (15:54)
[2018-12-15 16:05] VITALS: BP_SYST 142
[2018-12-15 16:15] VITALS: BP_SYST 142
--- NOTE | 2018-12-15 16:20 | NUR ---
DC Planning: contacted and fax referral package, dc order to home with HH and PT to milena Mccloud at [facility]. fax# [phone], tel# [phone]. Addendum: 12/15/18 at 1640 by Grupo Nash RN >> returned call from Ame, arranged HH with [facility] to f/u with pt tomorrow. She already notified JUANITO Gonzalez.
--- NOTE | 2018-12-15 18:00 | NUR ---
D/C Patient Patient given medication reconciliation form and D/C instructions. Exit Care provided. Patient verbalized understanding. MD discussed with patient the results and treatment provided. Ambulatory with steady gait for discharge to home. Patient in stable condition, ID band removed. IV catheter removed, intact and dressing applied, no active bleeding. No Rx given. Patient educated on pain management. Patient and care given told to call dr Diehl for appointment on Tuesday. All belongings sent with patient.
--- NOTE | 2018-12-22 14:01 | NUR ---
Discharge Follow Up Phone Call PLANISHING PRESS OPERATOR phoned patient, . Patient stated he was readmitted to a hospital on 12/18/18 and is currently at [facility].
== END 2018-12-15 18:00 | disposition home health service (06) | DRG 45 ==
LOC: SED 14:27 → OBSVTOIN 18:12 → STU 18:12 → UNDOADMOB 18:12 → INTOOBSV 18:12 → STU 18:14 → INTOOBSV 12-13 16:06 → UNDOADMOB 12-13 16:06 → OBSVTOIN 12-13 16:06
PROVIDERS: ADMIT Internal Medicine Cardiovascular Disease; ATTEND Internal Medicine Cardiovascular Disease
DX: I63.9 Cerebral infarction, unspecified (principal); I67.1 Cerebral aneurysm, nonruptured; I95.9 Hypotension, unspecified; E11.319 Type 2 diabetes mellitus with unspecified diabetic retinopathy without macular edema; M48.00 Spinal stenosis, site unspecified; B35.1 Tinea unguium; E55.9 Vitamin D deficiency, unspecified; E78.5 Hyperlipidemia, unspecified; H54.62 Unqualified visual loss, left eye, normal vision right eye; H40.9 Unspecified glaucoma; K21.9 Gastro-esophageal reflux disease without esophagitis; M79.7 Fibromyalgia; Z85.828 Personal history of other malignant neoplasm of skin; Z86.73 Personal history of transient ischemic attack (TIA), and cerebral infarction without residual deficits; Z86.79 Personal history of other diseases of the circulatory system; Z88.1 Allergy status to other antibiotic agents; Z79.899 Other long term (current) drug therapy; Z79.82 Long term (current) use of aspirin
CPT/HCPCS: 36415; 70450-TC; 70544; 70547; 70551; 70553; 71045; 80053; 81003; 82962; 83605; 84484; 85025; 85610-TC; 85730-TC; 87040-TC; 87086; 93005; 97116-GP; 97530-GP; 99285; A9579; G0378; J1815; J8597

== ENCOUNTER 2019-04-07 15:05 | Emergency (ER) | payer MEDICAID ==
[~2019-04-07] VITALS: Ht 182.9 cm; Wt 95.3 kg
[~2019-04-07 15:05] MED LIST changes: +VITD2000 PO; -XALEYE RIGHT EYE
[2019-04-07 15:08] VITALS: BP_SYST 134
--- NOTE | 2019-04-07 15:35 | NUR ---
Patient to ER bed 3 to gown for evaluation. Side rails up. Report given to JUANITO Stephens.
--- NOTE | 2019-04-07 15:36 | NUR ---
Patient is awake, alert, and oriented x4. Daughter is at bedside. Patient reports abdominal pain x5 days that is radiating to the abdomen with nausea. Patient denies vomiting and diarrhea.
--- NOTE | 2019-04-07 15:47 | NUR ---
ER Dr. Lange at bedside examining patient.
[2019-04-07] MEDS ORDERED: NACL 0.9% 1,000 ML IV ONE (15:52)
[2019-04-07] MEDS ORDERED: ONDANSETRON HCL 4 MG/2 ML VIAL IVP ONE (16:00)
[2019-04-07] MEDS ORDERED: MORPHINE 4 MG/ML INJ. SYRINGE IVP ONE (16:00)
[2019-04-07 16:27] LABS: BASOPHILS # (AUTO) 0.1 K/uL (0.0-0.2); BASOPHILS % (AUTO) 1.4 % (0.0-2.0); EOSINOPHILS # (AUTO) 0.1 K/uL (0.0-0.4); EOSINOPHILS % (AUTO) 1.7 % (0.0-4.0); HEMATOCRIT 35.8 % (36-54); HEMOGLOBIN 12.2 g/dL (14.0-18.0); LYMPHOCYTES # (AUTO) 1.7 K/uL (1.0-5.5); LYMPHOCYTES % (AUTO) 26.5 % (20.5-51.5); MEAN CORPUSCULAR HEMOGLOBIN 29 pg (27-31); MEAN CORPUSCULAR HGB CONC 34 % (32-36); MEAN CORPUSCULAR VOLUME 85 fL (79.0-98.0); MONOCYTES # (AUTO) 0.4 K/uL (0.0-1.0); MONOCYTES % (AUTO) 6.3 % (1.7-9.3); NEUTROPHILS % (AUTO) 64.1 % (40.0-70.0); PLATELET COUNT (AUTO) 206 K/uL (130-430); RED BLOOD CELL COUNT(AUTO) 4.21 MIL/uL (4.2-6.2); RED CELL DISTRIBUTION WIDTH 13.9 % (9.0-15.0); WHITE BLOOD COUNT (AUTO) 6.2 K/uL (4.8-10.8)
[2019-04-07 16:37] LABS: CALCIUM 9.3 mg/dL (8.4-11.0); CREATININE 0.78 mg/dL (0.55-1.30); POTASSIUM 4.2 mmol/L (3.5-5.1)
[2019-04-07 16:42] LABS: ALBUMIN 3.4 g/dL (3.4-4.8); TOTAL BILIRUBIN 0.5 mg/dL (0.0-1.0)
[2019-04-07 18:07] VITALS: BP_SYST 138
--- NOTE | 2019-04-07 18:07 | NUR ---
Patient given written and verbal discharge instructions and verbalizes understanding. ER MD discussed with patient the results and treatment provided. Patient in stable condition. ID arm band removed. IV catheter removed intact and dressing applied, no active bleeding. Rx of lactulose given. Patient educated on pain management and to follow up with PMD. Pain Scale 0/10. Opportunity for questions provided and answered. Medication side effect fact sheet provided.
== END 2019-04-07 18:07 | disposition home or self-care (01) ==
LOC: SED 15:05
DX: K59.00 Constipation, unspecified (principal); K21.9 Gastro-esophageal reflux disease without esophagitis; M19.90 Unspecified osteoarthritis, unspecified site; I51.89 Other ill-defined heart diseases; E11.9 Type 2 diabetes mellitus without complications; M79.7 Fibromyalgia; H40.9 Unspecified glaucoma; H54.61 Unqualified visual loss, right eye, normal vision left eye; I95.9 Hypotension, unspecified; Z79.82 Long term (current) use of aspirin; Z79.899 Other long term (current) drug therapy; Z88.2 Allergy status to sulfonamides
CPT/HCPCS: 36415; 74176; 80053; 81002; 83690; 85025; 96374; 96375; 99284; J2270; J2405; J7030

== ENCOUNTER 2019-04-08 19:15 | Emergency (ER) | payer MEDICAID ==
[~2019-04-08] VITALS: Ht 182.9 cm; Wt 95.3 kg
[2019-04-08 20:14] VITALS: BP_SYST 103
--- NOTE | 2019-04-08 20:14 | NUR ---
Pt placed to ER bed 05, to gown. Pt c/o lower back and lower abdominal pain since Tuesday. +nausea, -diarrhea. Pt states that he called his PMD at 1700 and was instructed to come to ER. Pt was seen here in ER yesterday and states that a scan was performed that showed that he's "backed up" and has a kidney stone.
--- NOTE | 2019-04-08 21:30 | NUR ---
Dr. Judge at bedside.
[2019-04-08] MEDS ORDERED: MINERAL OIL 133 ML ENEMA RC ONE (21:45)
--- NOTE | 2019-04-08 22:19 | NUR ---
Pt placed on bedside comode. Fleets Oil Enema administered with unsuccessful results. Dr. Judge made aware.
[2019-04-09] MEDS ORDERED: MINERAL OIL 133 ML ENEMA RC ONE
--- NOTE | 2019-04-09 | NUR ---
Pt placed on bedside comode. Second Fleets Oil Enema administered with unsuccessful results. Dr. Judge made aware.
--- NOTE | 2019-04-09 00:29 | NUR ---
Pts son (David Mathis) is to be notified about disposition status. ([phone])
--- NOTE | 2019-04-09 01:00 | NUR ---
Pt assisted to bedside comode. Soap suds enema administered. Moderate return of large brown stool. Pt states that he feels like there's more stool and requests another soap suds enema. Dr. Judge made aware.
--- NOTE | 2019-04-09 01:30 | NUR ---
Pt assisted to bedside comode. Second soap suds enema administered. Moderate return of large brown stool. Pt verbalizes improvement in symptoms. Dr. Judge made aware and pt to be discharged home.
[2019-04-09 02:16] VITALS: BP_SYST 132
--- NOTE | 2019-04-09 02:16 | NUR ---
Patient given written and verbal discharge instructions and verbalizes understanding. ER MD discussed with patient the results and treatment provided. Patient in stable condition. ID arm band removed. No Rx given. Patient educated on pain management and to follow up with PMD. Pain Scale 2/10. Opportunity for questions provided and answered. Medication side effect fact sheet provided.
== END 2019-04-09 02:16 | disposition home or self-care (01) ==
LOC: SED 19:15
DX: K59.00 Constipation, unspecified (principal); E11.9 Type 2 diabetes mellitus without complications; K21.9 Gastro-esophageal reflux disease without esophagitis; Z88.2 Allergy status to sulfonamides; Z79.899 Other long term (current) drug therapy
CPT/HCPCS: 99284

== ENCOUNTER 2019-06-03 19:51 | Emergency (ER) | payer MEDICAID ==
[~2019-06-03] VITALS: Ht 182.9 cm; Wt 95.3 kg
[2019-06-03 20:24] VITALS: BP_SYST 128
--- NOTE | 2019-06-03 20:29 | NUR ---
Patient to ER bed 03 to gown for evaluation. Side rails up.
--- NOTE | 2019-06-03 20:40 | NUR ---
Patient AAO x 4 is brought via wheelchair to ER bed 03 for congestion, weakness, fatigue, and body aches x 1 week. Denies cough, chest pain, N/V/D. Reports that his ex- and daughter told him to go to the ER. Even chest rise and fall with respirations. Will continue to monitor.
--- NOTE | 2019-06-03 20:44 | NUR ---
ER Dr. Judge at bedside examining patient.
[2019-06-03 22:47] VITALS: BP_SYST 121
--- NOTE | 2019-06-03 22:47 | NUR ---
Patient given written and verbal discharge instructions and verbalizes understanding. ER MD discussed with patient the results and treatment provided. Patient in stable condition. ID arm band removed. No Rx given. Patient educated on pain management and to follow up with PMD. Pain Scale 0. Opportunity for questions provided and answered. Medication side effect fact sheet provided.
== END 2019-06-03 22:47 | disposition home or self-care (01) ==
LOC: SED 19:51
DX: J32.9 Chronic sinusitis, unspecified (principal); E11.9 Type 2 diabetes mellitus without complications; K21.9 Gastro-esophageal reflux disease without esophagitis; Z90.89 Acquired absence of other organs; Z79.82 Long term (current) use of aspirin; Z79.899 Other long term (current) drug therapy; Z91.013 Allergy to seafood; Z88.2 Allergy status to sulfonamides; Z88.1 Allergy status to other antibiotic agents
CPT/HCPCS: 36415; 86710; 99283

== ENCOUNTER 2019-08-02 11:29 | Emergency (ER) | payer MEDICAID ==
[~2019-08-02] VITALS: Ht 182.9 cm; Wt 102.1 kg
[2019-08-02 11:39] VITALS: BP_SYST 153
[2019-08-02] MEDS ORDERED: OMEG1CAP24 PO (11:56)
[2019-08-02] MEDS ORDERED: DIPHENHYDRAMINE INJ 50 MG/ML VIAL IVP ONE (12:30)
[2019-08-02] MEDS ORDERED: MORPHINE 4 MG/ML INJ. SYRINGE IVP ONE (12:30)
[2019-08-02 13:03] LABS: BASOPHILS % (AUTO) 0.7 % (0.0-2.0); EOSINOPHILS # (AUTO) 0.2 K/uL (0.0-0.4); EOSINOPHILS % (AUTO) 3.3 % (0.0-4.0); HEMATOCRIT 37.1 % (36-54); HEMOGLOBIN 12.1 g/dL (14.0-18.0); LYMPHOCYTES # (AUTO) 1.8 K/uL (1.0-5.5); LYMPHOCYTES % (AUTO) 31.3 % (20.5-51.5); MEAN CORPUSCULAR HEMOGLOBIN 28 pg (27-31); MEAN CORPUSCULAR HGB CONC 33 % (32-36); MEAN CORPUSCULAR VOLUME 86 fL (79.0-98.0); MONOCYTES # (AUTO) 0.5 K/uL (0.0-1.0); MONOCYTES % (AUTO) 8.2 % (1.7-9.3); NEUTROPHILS # (AUTO) 3.2 K/uL (1.8-7.7); NEUTROPHILS % (AUTO) 56.5 % (40.0-70.0); PLATELET COUNT (AUTO) 189 K/uL (130-430); RED BLOOD CELL COUNT(AUTO) 4.29 MIL/uL (4.2-6.2); RED CELL DISTRIBUTION WIDTH 15.1 % (9.0-15.0); WHITE BLOOD COUNT (AUTO) 5.6 K/uL (4.8-10.8)
[2019-08-02 13:18] LABS: CALCIUM 8.9 mg/dL (8.4-11.0); CREATININE 0.9 mg/dL (0.55-1.30); POTASSIUM 4.2 mmol/L (3.5-5.1)
[2019-08-02 13:20] LABS: INR 1.1 (0.80-1.20); PROTHROMBIN TIME 10.6 SECS (9.5-12.5)
[2019-08-02 13:23] LABS: ALBUMIN 3.3 g/dL (3.4-4.8); TOTAL BILIRUBIN 0.4 mg/dL (0.0-1.0)
[2019-08-02 13:55] LABS: BILIRUBIN,URINE NEGATIVE (NEGATIVE); BLOOD, URINE NEGATIVE (NEGATIVE); CLARITY/URINE CLEAR (CLEAR); COLOR,URINE YELLOW (YELLOW); GLUCOSE,URINE NEGATIVE (NEGATIVE); KETONES,URINE NEGATIVE (NEGATIVE); LEUKOCYTE ESTERASE ,URINE NEGATIVE (NEGATIVE); NITRITE, URINE NEGATIVE (NEGATIVE); PH,URINE 5.5 (5.0-8.0); PROTEIN URINE NEGATIVE (NEGATIVE); UROBILINOGEN,URINE 0.2 (0.2-1.0)
[2019-08-02] MEDS ORDERED: MAGNESIUM CITRATE 300 ML ORAL SOLUTION PO ONE (15:15)
[2019-08-02 15:30] VITALS: BP_SYST 164
== END 2019-08-02 15:30 | disposition home or self-care (01) ==
LOC: SED 11:29
DX: M54.9 Dorsalgia, unspecified (principal); K59.00 Constipation, unspecified; I10 Essential (primary) hypertension; E11.9 Type 2 diabetes mellitus without complications; K21.9 Gastro-esophageal reflux disease without esophagitis; M19.90 Unspecified osteoarthritis, unspecified site; Z79.899 Other long term (current) drug therapy; Z79.82 Long term (current) use of aspirin; Z88.2 Allergy status to sulfonamides; Z91.013 Allergy to seafood
CPT/HCPCS: 36415; 71045; 74176; 80053; 81003; 83605; 83690; 85025; 85610; 87040; 96374; 96375; 99285; J1200; J2270

== ENCOUNTER 2020-12-08 19:25 | Observation (INO) | payer BC, SELFPAY, MEDICAID ==
[~2020-12-08] VITALS: Ht 182.9 cm; Wt 116.3 kg
[~2020-12-08 19:25] MED LIST changes: -ASPI-1153 PO; +ASPI-1393 PO; +OMEG1CAP24 PO; -VITD2000 PO
[2020-12-08 19:35] VITALS: BP_SYST 87
[2020-12-08 20:11] LABS: BASOPHILS # (AUTO) 0.1 K/uL (0.0-0.2); BASOPHILS % (AUTO) 1.3 % (0.0-2.0); EOSINOPHILS # (AUTO) 0.3 K/uL (0.0-0.4); EOSINOPHILS % (AUTO) 3.2 % (0.0-4.0); HEMATOCRIT 36.3 % (36-54); HEMOGLOBIN 11.9 g/dL (14.0-18.0); LYMPHOCYTES # (AUTO) 2.5 K/uL (1.0-5.5); MEAN CORPUSCULAR HEMOGLOBIN 29 pg (27-31); MEAN CORPUSCULAR HGB CONC 33 % (32-36); MEAN CORPUSCULAR VOLUME 87 fL (79.0-98.0); MONOCYTES # (AUTO) 0.8 K/uL (0.0-1.0); MONOCYTES % (AUTO) 9.1 % (1.7-9.3); NEUTROPHILS # (AUTO) 5.2 K/uL (1.8-7.7); NEUTROPHILS % (AUTO) 58.4 % (40.0-70.0); PLATELET COUNT (AUTO) 205 K/uL (130-430); RED BLOOD CELL COUNT(AUTO) 4.19 MIL/uL (4.2-6.2); RED CELL DISTRIBUTION WIDTH 15.4 % (9.0-15.0); WHITE BLOOD COUNT (AUTO) 8.9 K/uL (4.8-10.8)
[2020-12-08 20:29] LABS: ANION GAP 10 (5-15); CALCIUM 8.5 mg/dL (8.4-11.0); CHLORIDE 107 mmol/L (98-107); CREATININE 1.16 mg/dL (0.55-1.30); GLUCOSE 153 mg/dL (70-99); SODIUM SERUM 143 mmol/L (136-145); UREA NITROGEN, BLOOD 30 mg/dL (8-21)
[2020-12-08 20:35] LABS: ALANINE AMINOTRANSFERASE 13 U/L (12-78); ALBUMIN 2.7 g/dL (3.4-4.8); ASPARTATE AMINOTRANSFERASE 11 U/L (10-37); TOTAL BILIRUBIN 0.2 mg/dL (0.0-1.0)
[2020-12-08 20:36] LABS: GFR AFRICAN AMERICAN 81 mL/min (>90)
[2020-12-08 20:41] LABS: INR 1.1 (0.80-1.20); PROTHROMBIN TIME 11.1 SECS (9.5-12.5)
[2020-12-08 20:43] LABS: ACETONE, SERUM NEGATIVE (NEGATIVE)
[2020-12-08] MEDS ORDERED: NACL 0.9% 1,000 ML IV ONE ×2 (20:45→21:00)
[2020-12-08] MEDS ORDERED: GLIP2.5T3 PO (21:38)
[2020-12-08] MEDS ORDERED: DICY10CA13 PO (21:46)
[2020-12-08] MEDS ORDERED: PRO40 PO (21:46)
[2020-12-08] MEDS ORDERED: APIX5TAB PO (21:46)
[2020-12-08] MEDS ORDERED: AMLO5TAB4 PO (21:46)
[2020-12-08] MEDS ORDERED: DOCU-156 PO (21:46)
[2020-12-08] MEDS ORDERED: ONDA-8 TL (21:46)
[2020-12-08] MEDS ORDERED: ACETAMINOPHEN 325 MG TABLET PO PRN (23:45)
[2020-12-08] MEDS ORDERED: MORPHINE 4 MG INJ. 4 MG/ML VIAL IVP PRN (23:45)
[2020-12-08] MEDS ORDERED: HYDROcodone/ACETAMIN 5-325 MG TAB (NORCO/ VICODIN) PO PRN (23:45)
[2020-12-08] MEDS ORDERED: NALOXONE HCL 0.4 MG/ML AMP (NARCAN) IVP PRN (23:45)
[2020-12-08] MEDS ORDERED: ALBUTEROL SULFATE 0.083% 2.5 MG/3 ML VIAL.NEB INH PRN (23:45)
[2020-12-09] MEDS ORDERED: INSULIN REGULAR, HUMAN 100 UNITS/ML, 10 ML VIAL (humuLIN R) SUBCUT PRN
[2020-12-09] MEDS ORDERED: PANTOPRAZOLE SODIUM 40 MG TAB PO SCH
[2020-12-09] MEDS ORDERED: NACL 0.9% 1,000 ML IV ONE
[2020-12-09] MEDS: NACL 0.9% 1,000 ML IV SCH ×3 (00:07→13:15)
[2020-12-09 00:22] LABS: BILIRUBIN,URINE NEGATIVE (NEGATIVE); BLOOD, URINE NEGATIVE (NEGATIVE); CLARITY/URINE CLEAR (CLEAR); COLOR,URINE YELLOW (YELLOW); GLUCOSE,URINE NEGATIVE (NEGATIVE); KETONES,URINE NEGATIVE (NEGATIVE); LEUKOCYTE ESTERASE ,URINE NEGATIVE (NEGATIVE); NITRITE, URINE NEGATIVE (NEGATIVE); PROTEIN URINE NEGATIVE (NEGATIVE); UROBILINOGEN,URINE 0.2 (0.2-1.0)
[2020-12-09 02:56] VITALS: BP_SYST 94
[2020-12-09 03:45] VITALS: BP_SYST 106
[2020-12-09 07:14] LABS: BASOPHILS % (AUTO) 0.1 % (0.0-2.0); EOSINOPHILS # (AUTO) 0.3 K/uL (0.0-0.4); EOSINOPHILS % (AUTO) 2.6 % (0.0-4.0); HEMATOCRIT 35.1 % (36-54); HEMOGLOBIN 11.6 g/dL (14.0-18.0); LYMPHOCYTES # (AUTO) 2.4 K/uL (1.0-5.5); LYMPHOCYTES % (AUTO) 22.6 % (20.5-51.5); MEAN CORPUSCULAR HEMOGLOBIN 29 pg (27-31); MEAN CORPUSCULAR HGB CONC 33 % (32-36); MEAN CORPUSCULAR VOLUME 86 fL (79.0-98.0); MONOCYTES # (AUTO) 0.8 K/uL (0.0-1.0); MONOCYTES % (AUTO) 7.8 % (1.7-9.3); NEUTROPHILS # (AUTO) 7.2 K/uL (1.8-7.7); NEUTROPHILS % (AUTO) 66.9 % (40.0-70.0); PLATELET COUNT (AUTO) 147 K/uL (130-430); RED BLOOD CELL COUNT(AUTO) 4.07 MIL/uL (4.2-6.2); RED CELL DISTRIBUTION WIDTH 15.4 % (9.0-15.0); WHITE BLOOD COUNT (AUTO) 10.7 K/uL (4.8-10.8)
[2020-12-09 07:53] LABS: ALBUMIN 2.7 g/dL (3.4-4.8); CALCIUM 8.4 mg/dL (8.4-11.0); CREATININE 0.88 mg/dL (0.55-1.30); POTASSIUM 3.6 mmol/L (3.5-5.1); TOTAL BILIRUBIN 0.2 mg/dL (0.0-1.0)
[2020-12-09 08:00] VITALS: BP_SYST 114
[2020-12-09] MEDS: METOCLOPRAMIDE HCL 10 MG TABLET PO SCH ×2 (08:19→15:31)
[2020-12-09] MEDS ORDERED: DICYCLOMINE HCL 10 MG CAPSULE PO SCH (09:00)
[2020-12-09] MEDS ORDERED: DOCUSATE SODIUM 100 MG CAPSULE PO SCH (09:00)
[2020-12-09] MEDS ORDERED: METOPROLOL TARTRATE 25 MG TABLET PO SCH (09:00)
[2020-12-09] MEDS ORDERED: CLOPIDOGREL BISULFATE 75 MG TABLET PO SCH (09:00)
[2020-12-09] MEDS ORDERED: LORATADINE 10 MG TABLET PO SCH (09:00)
[2020-12-09] MEDS ORDERED: PYRIDOSTIGMINE BROMIDE 60 MG TABLET PO SCH (09:00)
[2020-12-09] MEDS ORDERED: ASPIRIN 81 MG TABLET(ECOTRIN) PO SCH (09:00)
[2020-12-09] MEDS ORDERED: ADENOSINE 6MG/2ML VIAL IVP ONE (09:00)
[2020-12-09] MEDS ORDERED: glipiZIDE XL 2.5 MG/TAB (GLUCOTROL XL) PO SCH (09:00)
[2020-12-09] MEDS ORDERED: MIDODRINE HCL 5 MG TABLET (PROAMATINE) PO SCH (09:00)
[2020-12-09] MEDS ORDERED: APIXABAN 2.5 MG TABLET PO SCH (09:00)
[2020-12-09] MEDS ORDERED: SERT50TA PO (10:40)
[2020-12-09] MEDS ORDERED: LIP40 PO (10:40)
[2020-12-09 12:30] VITALS: BP_SYST 118
[2020-12-09] MEDS ORDERED: METO25TA6 PO (14:19)
[2020-12-09 15:00] VITALS: BP_SYST 133
[2020-12-09] MEDS ORDERED: ATORVASTATIN 20 MG TABLET PO SCH (21:00)
== END 2020-12-09 15:55 | disposition home or self-care (01) ==
LOC: SED 19:25 → STU 21:25 → INTOOBSV 21:25 → STU 12-09 01:46
PROVIDERS: ADMIT Internal Medicine Hospice and Palliative Medicine; ATTEND Internal Medicine Hospice and Palliative Medicine
DX: I48.91 Unspecified atrial fibrillation (principal); Z20.822 Contact with and (suspected) exposure to COVID-19; I95.9 Hypotension, unspecified; I47.1 Supraventricular tachycardia; E86.0 Dehydration; G70.00 Myasthenia gravis without (acute) exacerbation; I67.1 Cerebral aneurysm, nonruptured; E11.42 Type 2 diabetes mellitus with diabetic polyneuropathy; K21.9 Gastro-esophageal reflux disease without esophagitis; M79.7 Fibromyalgia; Q21.1 Atrial septal defect; H40.9 Unspecified glaucoma; H54.61 Unqualified visual loss, right eye, normal vision left eye; Z79.899 Other long term (current) drug therapy; Z86.73 Personal history of transient ischemic attack (TIA), and cerebral infarction without residual deficits; I10 Essential (primary) hypertension; W19.XXXA Unspecified fall, initial encounter; Y93.89 Activity, other specified; Y92.89 Other specified places as the place of occurrence of the external cause
CPT/HCPCS: 36415 ×2; 70450; 71045; 76376; 80053 ×2; 81003; 82009; 82550; 82962; 83605; 84484 ×2; 85025 ×2; 85610; 85730; 87426; 93005 ×2; 93306; 96361 ×3; 96374; 97162; 99285; G0378; J0153; J1815; J8597; 96360

== ENCOUNTER 2021-03-15 00:07 | Inpatient (IN) | payer BC, MEDICAID, SELFPAY ==
[~2021-03-15] VITALS: Ht 182.9 cm; Wt 110.7 kg
[2021-03-15 00:07] VITALS: BP_SYST 109
[~2021-03-15 00:07] MED LIST changes: +AMLO5TAB4 PO; +APIX5TAB PO; -ASPI-1393 PO; -CLOP300T2 PO; +DICY10CA13 PO; +DOCU-156 PO; +GLIP2.5T3 PO; +LIP40 PO; +METO25TA6 PO; +ONDA-8 TL; +PRO40 PO; +SERT50TA PO
[2021-03-15 01:38] LABS: EOSINOPHILS % (AUTO) 2.4 % (0.0-4.0); HEMATOCRIT 38.5 % (36-54); HEMOGLOBIN 12.6 g/dL (14.0-18.0); MEAN CORPUSCULAR HEMOGLOBIN 28 pg (27-31); MEAN CORPUSCULAR HGB CONC 33 % (32-36); MEAN CORPUSCULAR VOLUME 85 fL (79.0-98.0); MONOCYTES % (AUTO) 7.3 % (1.7-9.3); NEUTROPHILS % (AUTO) 76.7 % (40.0-70.0); PLATELET COUNT (AUTO) 190 K/uL (130-430); RED BLOOD CELL COUNT(AUTO) 4.51 MIL/uL (4.2-6.2); RED CELL DISTRIBUTION WIDTH 16.7 % (9.0-15.0); WHITE BLOOD COUNT (AUTO) 12.6 K/uL (4.8-10.8)
[2021-03-15 03:00] LABS: INR 1.1 (0.80-1.20); PROTHROMBIN TIME 11.6 SECS (9.5-12.5)
[2021-03-15] MEDS ORDERED: PANTOPRAZOLE SODIUM 40 MG TAB PO SCH (07:30)
[2021-03-15] MEDS ORDERED: LORazepam 2 MG/ML VIAL IVP PRN (07:45)
[2021-03-15] MEDS ORDERED: ACETAMINOPHEN 325 MG TABLET PO PRN ×2 (07:45→08:30)
[2021-03-15] MEDS ORDERED: ONDANSETRON HCL 4 MG/2 ML VIAL IVP PRN (07:45)
[2021-03-15] MEDS ORDERED: HYDROcodone/ACETAMIN 5-325 MG TAB (NORCO/ VICODIN) PO PRN (07:45)
[2021-03-15] MEDS ORDERED: HYDROcodone/ACETAMIN 10-325 MG TAB PO PRN (07:45)
[2021-03-15] MEDS ORDERED: NALOXONE HCL 0.4 MG/ML AMP (NARCAN) IVP PRN ×2 (07:45)
[2021-03-15] MEDS ORDERED: DEXTROSE 50%-WATER 50 ML DISP.SYRIN IVP PRN (08:30)
[2021-03-15] MEDS ORDERED: D5W 1,000 ML IV PRN (08:30)
[2021-03-15] MEDS ORDERED: GLUCOSE (DEXTROSE) ORAL GEL -Adults PO PRN (08:30)
[2021-03-15 08:54] VITALS: BP_SYST 146
[2021-03-15] MEDS ORDERED: ATORVASTATIN 20 MG TABLET PO SCH (09:00)
[2021-03-15] MEDS ORDERED: MIDODRINE HCL 5 MG TABLET (PROAMATINE) PO SCH (09:00)
[2021-03-15] MEDS ORDERED: METOPROLOL TARTRATE 25 MG TABLET PO SCH (09:00)
[2021-03-15 09:15] LABS: ANION GAP 14 (5-15); CALCIUM 8.8 mg/dL (8.4-11.0); CHLORIDE 108 mmol/L (98-107); CREATININE 1.23 mg/dL (0.55-1.30); GLUCOSE 153 mg/dL (70-99); POTASSIUM 4.2 mmol/L (3.5-5.1); SODIUM SERUM 145 mmol/L (136-145); UREA NITROGEN, BLOOD 33 mg/dL (8-21)
[2021-03-15 09:17] LABS: GFR AFRICAN AMERICAN 76 mL/min (>90)
[2021-03-15 09:20] LABS: ALANINE AMINOTRANSFERASE 25 U/L (12-78); ALBUMIN 3.6 g/dL (3.4-4.8); ASPARTATE AMINOTRANSFERASE 17 U/L (10-37); TOTAL BILIRUBIN 0.3 mg/dL (0.0-1.0)
[2021-03-15 09:22] LABS: ALCOHOL, BLOOD < 3 mg/dL (<10)
[2021-03-15] MEDS: METOCLOPRAMIDE HCL 10 MG TABLET PO SCH ×3 (09:26→21:59)
[2021-03-15] MEDS: SERTRALINE HCL 50 MG TABLET PO SCH (09:26)
[2021-03-15] MEDS: DOCUSATE SODIUM 100 MG CAPSULE PO SCH ×2 (09:26→21:59)
[2021-03-15] MEDS: OMEGA-3/DHA/EPA/FISH OIL 1 GM CAPSULE PO SCH (09:26)
[2021-03-15] MEDS: LORATADINE 10 MG TABLET PO SCH (09:26)
[2021-03-15] MEDS: DICYCLOMINE HCL 10 MG CAPSULE PO SCH ×2 (09:26→21:00)
[2021-03-15] MEDS: MULTIVITAMINS TAB 1 TABLET PO SCH (09:27)
[2021-03-15] MEDS: APIXABAN 2.5 MG TABLET PO SCH ×2 (09:28→21:58)
[2021-03-15] MEDS: amLODIPine BESYLATE 5 MG TABLET PO SCH (09:29)
[2021-03-15] MEDS: glipiZIDE XL 2.5 MG/TAB (GLUCOTROL XL) PO SCH (09:33)
[2021-03-15] MEDS: PYRIDOSTIGMINE BROMIDE 60 MG TABLET PO SCH (09:42)
[2021-03-15 09:57] LABS: THYROID STIMULATING HORMONE 2.3 uIu/mL (0.34-4.82)
[2021-03-15] MEDS: INSULIN REGULAR, HUMAN 100 UNITS/ML, 10 ML VIAL (humuLIN R) SUBCUT PRN (11:58)
[2021-03-15 12:02] VITALS: BP_SYST 137
[2021-03-15] MEDS ORDERED: NORMAL SALINE 5 ML DISP.SYRIN IVF SCH (14:00)
[2021-03-15] MEDS: NORMAL SALINE 5 ML DISP.SYRIN IVF SCH ×2 (15:16→22:09)
[2021-03-15 16:57] VITALS: BP_SYST 131
[2021-03-15 20:00] VITALS: BP_SYST 117
[2021-03-15] MEDS: MIDODRINE HCL 5 MG TABLET (PROAMATINE) PO SCH (21:00)
[2021-03-15] MEDS: ATORVASTATIN 20 MG TABLET PO SCH (21:59)
[2021-03-16 00:40] VITALS: BP_SYST 126
[2021-03-16] MEDS ORDERED: D5/0.45 NS 500 ML IV SCH (01:00)
[2021-03-16] MEDS ORDERED: D5/0.45 NS 500 ML IV ONE (03:00)
[2021-03-16] MEDS: NORMAL SALINE 5 ML DISP.SYRIN IVF SCH ×3 (06:00→21:20)
[2021-03-16 06:33] LABS: BASOPHILS # (AUTO) 0.1 K/uL (0.0-0.2); BASOPHILS % (AUTO) 1.5 % (0.0-2.0); EOSINOPHILS # (AUTO) 0.3 K/uL (0.0-0.4); EOSINOPHILS % (AUTO) 4.3 % (0.0-4.0); HEMATOCRIT 37.7 % (36-54); HEMOGLOBIN 12.2 g/dL (14.0-18.0); LYMPHOCYTES # (AUTO) 2.1 K/uL (1.0-5.5); LYMPHOCYTES % (AUTO) 27.6 % (20.5-51.5); MEAN CORPUSCULAR HEMOGLOBIN 28 pg (27-31); MEAN CORPUSCULAR HGB CONC 32 % (32-36); MEAN CORPUSCULAR VOLUME 86 fL (79.0-98.0); MONOCYTES # (AUTO) 0.5 K/uL (0.0-1.0); NEUTROPHILS # (AUTO) 4.5 K/uL (1.8-7.7); NEUTROPHILS % (AUTO) 59.6 % (40.0-70.0); PLATELET COUNT (AUTO) 174 K/uL (130-430); RED CELL DISTRIBUTION WIDTH 15.9 % (9.0-15.0); WHITE BLOOD COUNT (AUTO) 7.5 K/uL (4.8-10.8)
[2021-03-16 07:04] LABS: ALBUMIN 3.1 g/dL (3.4-4.8); CALCIUM 8.5 mg/dL (8.4-11.0); CREATININE 1.1 mg/dL (0.55-1.30); POTASSIUM 3.4 mmol/L (3.5-5.1); TOTAL BILIRUBIN 0.4 mg/dL (0.0-1.0)
[2021-03-16 08:00] VITALS: BP_SYST 130
[2021-03-16] MEDS: PYRIDOSTIGMINE BROMIDE 60 MG TABLET PO SCH (09:00)
[2021-03-16] MEDS: amLODIPine BESYLATE 5 MG TABLET PO SCH ×2 (09:00→14:25)
[2021-03-16] MEDS: MULTIVITAMINS TAB 1 TABLET PO SCH ×2 (09:00→14:25)
[2021-03-16] MEDS: OMEGA-3/DHA/EPA/FISH OIL 1 GM CAPSULE PO SCH ×2 (09:00→14:25)
[2021-03-16] MEDS: METOCLOPRAMIDE HCL 10 MG TABLET PO SCH ×3 (09:00→21:18)
[2021-03-16] MEDS: LORATADINE 10 MG TABLET PO SCH ×2 (09:00→14:25)
[2021-03-16] MEDS: MIDODRINE HCL 5 MG TABLET (PROAMATINE) PO SCH ×3 (09:00→21:00)
[2021-03-16] MEDS: APIXABAN 2.5 MG TABLET PO SCH ×2 (09:00→21:19)
[2021-03-16] MEDS: DOCUSATE SODIUM 100 MG CAPSULE PO SCH ×2 (09:00→21:17)
[2021-03-16] MEDS: DICYCLOMINE HCL 10 MG CAPSULE PO SCH ×2 (09:00→21:18)
[2021-03-16] MEDS: glipiZIDE XL 2.5 MG/TAB (GLUCOTROL XL) PO SCH ×2 (09:00→14:25)
[2021-03-16] MEDS: SERTRALINE HCL 50 MG TABLET PO SCH ×2 (09:00→14:26)
[2021-03-16] MEDS ORDERED: REGADENOSON 0.4 MG/5 ML SYRINGE IVP ONE (10:00)
[2021-03-16 12:00] VITALS: BP_SYST 128
[2021-03-16 16:00] VITALS: BP_SYST 122
[2021-03-16 21:13] VITALS: BP_SYST 127
[2021-03-16] MEDS: ATORVASTATIN 20 MG TABLET PO SCH (21:18)
[2021-03-16] MEDS: INSULIN REGULAR, HUMAN 100 UNITS/ML, 10 ML VIAL (humuLIN R) SUBCUT PRN (21:34)
[2021-03-17 05:20] VITALS: BP_SYST 122
[2021-03-17] MEDS: NORMAL SALINE 5 ML DISP.SYRIN IVF SCH ×3 (05:27→21:24)
[2021-03-17 08:04] VITALS: BP_SYST 122
[2021-03-17] MEDS: MIDODRINE HCL 5 MG TABLET (PROAMATINE) PO SCH ×3 (09:25→21:10)
[2021-03-17] MEDS: DICYCLOMINE HCL 10 MG CAPSULE PO SCH ×2 (09:25→21:10)
[2021-03-17] MEDS: LORATADINE 10 MG TABLET PO SCH (09:25)
[2021-03-17] MEDS: METOCLOPRAMIDE HCL 10 MG TABLET PO SCH ×3 (09:26→21:10)
[2021-03-17] MEDS: amLODIPine BESYLATE 5 MG TABLET PO SCH (09:29)
[2021-03-17] MEDS: DOCUSATE SODIUM 100 MG CAPSULE PO SCH ×2 (09:42→21:09)
[2021-03-17] MEDS: APIXABAN 2.5 MG TABLET PO SCH ×2 (09:44→21:11)
[2021-03-17] MEDS: MULTIVITAMINS TAB 1 TABLET PO SCH (09:59)
[2021-03-17] MEDS: OMEGA-3/DHA/EPA/FISH OIL 1 GM CAPSULE PO SCH (10:27)
[2021-03-17] MEDS: SERTRALINE HCL 50 MG TABLET PO SCH (10:28)
[2021-03-17 12:00] VITALS: BP_SYST 131
[2021-03-17] MEDS: glipiZIDE XL 2.5 MG/TAB (GLUCOTROL XL) PO SCH (12:36)
[2021-03-17] MEDS: INSULIN REGULAR, HUMAN 100 UNITS/ML, 10 ML VIAL (humuLIN R) SUBCUT PRN ×2 (12:49→21:13)
[2021-03-17 16:00] VITALS: BP_SYST 132
[2021-03-17 20:22] VITALS: BP_SYST 131
[2021-03-17] MEDS: ATORVASTATIN 20 MG TABLET PO SCH (21:10)
[2021-03-18 01:08] VITALS: BP_SYST 127
[2021-03-18] MEDS: NORMAL SALINE 5 ML DISP.SYRIN IVF SCH ×2 (06:54→13:07)
[2021-03-18] MEDS: MIDODRINE HCL 5 MG TABLET (PROAMATINE) PO SCH (08:23)
[2021-03-18] MEDS: DICYCLOMINE HCL 10 MG CAPSULE PO SCH (08:23)
[2021-03-18] MEDS: SERTRALINE HCL 50 MG TABLET PO SCH (08:24)
[2021-03-18] MEDS: LORATADINE 10 MG TABLET PO SCH (08:24)
[2021-03-18] MEDS: MULTIVITAMINS TAB 1 TABLET PO SCH (08:24)
[2021-03-18] MEDS: DOCUSATE SODIUM 100 MG CAPSULE PO SCH (08:24)
[2021-03-18] MEDS: OMEGA-3/DHA/EPA/FISH OIL 1 GM CAPSULE PO SCH (08:24)
[2021-03-18] MEDS: amLODIPine BESYLATE 5 MG TABLET PO SCH (08:25)
[2021-03-18] MEDS: glipiZIDE XL 2.5 MG/TAB (GLUCOTROL XL) PO SCH (08:25)
[2021-03-18] MEDS: METOCLOPRAMIDE HCL 10 MG TABLET PO SCH (08:25)
[2021-03-18] MEDS: APIXABAN 2.5 MG TABLET PO SCH (08:27)
[2021-03-18 09:42] VITALS: BP_SYST 140
[2021-03-18 09:44] VITALS: BP_SYST 140
[2021-03-18] MEDS: INSULIN REGULAR, HUMAN 100 UNITS/ML, 10 ML VIAL (humuLIN R) SUBCUT PRN (11:48)
[2021-03-18 12:11] VITALS: BP_SYST 145
[2021-03-18 12:49] VITALS: BP_SYST 145
== END 2021-03-18 15:45 | disposition home or self-care (01) | DRG 281 ==
LOC: SED 00:07 → STU 03:19
PROVIDERS: ADMIT Internal Medicine Hospice and Palliative Medicine; ATTEND Internal Medicine Hospice and Palliative Medicine
DX: R55 Syncope and collapse (principal); I21.A1 Myocardial infarction type 2; R65.10 Systemic inflammatory response syndrome (SIRS) of non-infectious origin without acute organ dysfunction; I50.22 Chronic systolic (congestive) heart failure; I13.0 Hypertensive heart and chronic kidney disease with heart failure and stage 1 through stage 4 chronic kidney disease, or unspecified chronic kidney disease; G90.8 Other disorders of autonomic nervous system; K21.9 Gastro-esophageal reflux disease without esophagitis; I48.0 Paroxysmal atrial fibrillation; H54.61 Unqualified visual loss, right eye, normal vision left eye; R07.89 Other chest pain; H91.92 Unspecified hearing loss, left ear; R00.1 Bradycardia, unspecified; M19.90 Unspecified osteoarthritis, unspecified site; G90.1 Familial dysautonomia [Riley-Day]; E11.69 Type 2 diabetes mellitus with other specified complication; N18.9 Chronic kidney disease, unspecified; E11.22 Type 2 diabetes mellitus with diabetic chronic kidney disease; E11.42 Type 2 diabetes mellitus with diabetic polyneuropathy; M48.02 Spinal stenosis, cervical region; M48.061 Spinal stenosis, lumbar region without neurogenic claudication; T44.7X5A Adverse effect of beta-adrenoreceptor antagonists, initial encounter; H40.9 Unspecified glaucoma; Z20.822 Contact with and (suspected) exposure to COVID-19; Z83.3 Family history of diabetes mellitus; Z86.73 Personal history of transient ischemic attack (TIA), and cerebral infarction without residual deficits; Z79.01 Long term (current) use of anticoagulants; Z88.2 Allergy status to sulfonamides; Z91.013 Allergy to seafood; Z79.899 Other long term (current) drug therapy; Z98.42 Cataract extraction status, left eye; Z98.52 Vasectomy status; Y92.89 Other specified places as the place of occurrence of the external cause
CPT/HCPCS: 36415; 70450-TC; 71045; 76376; 80053; 80061; 82085; 82550; 82962; 83519; 83735; 84100; 84443; 84484; 85025; 85610-TC; 85730-TC; 87040-TC; 93005; 93017; 93306; 93880; 99285; G0378; G0482; J1815; J2785; J8597

== ENCOUNTER 2022-04-27 12:21 | Observation (INO) | payer BC, MEDICAID ==
[~2022-04-27] VITALS: Ht 182.9 cm; Wt 103.9 kg
[~2022-04-27 12:21] MED LIST changes: -MES60 PO; -MIDO10TA PO
[2022-04-27 12:27] VITALS: BP_SYST 96
--- NOTE | 2022-04-27 12:33 | NUR ---
Placed in room 02 . Placed on damage inside adjuster, blood pressure machine and pulse oximeter. To gown for exam. Side rails up. Report given to Agustin SOLOMON
--- NOTE | 2022-04-27 12:37 | NUR ---
C/O CHEST PAIN ASSOCIATED WITH HX ABLATION LAST SEPTEMBER, BIBA FROM [facility] P[facility] AAOX4 SPEECH CLEAR AND COHERENT, PLACE IN ROOM 2, SEEN BY EDP WITH ORDER ANN OUT. ASPIRIN GIVEN IN ROUTE BY EMS.
[2022-04-27] MEDS ORDERED: ASPIRIN 81 MG TAB.CHEW PO ONE (12:45)
[2022-04-27] MEDS ORDERED: NITROGLYCERIN 1 INCH (GM) OINT. TD ONE (12:45)
[2022-04-27 14:13] LABS: BASOPHILS # (AUTO) 0.1 K/uL (0.0-0.2); BASOPHILS % (AUTO) 1.6 % (0.0-2.0); EOSINOPHILS # (AUTO) 0.4 K/uL (0.0-0.4); EOSINOPHILS % (AUTO) 6.2 % (0.0-4.0); HEMATOCRIT 35.5 % (36-54); HEMOGLOBIN 11.9 g/dL (14.0-18.0); LYMPHOCYTES # (AUTO) 1.3 K/uL (1.0-5.5); LYMPHOCYTES % (AUTO) 20.9 % (20.5-51.5); MEAN CORPUSCULAR HEMOGLOBIN 28 pg (27-31); MEAN CORPUSCULAR HGB CONC 33 % (32-36); MEAN CORPUSCULAR VOLUME 85 fL (79.0-98.0); MONOCYTES # (AUTO) 0.4 K/uL (0.0-1.0); MONOCYTES % (AUTO) 6.7 % (1.7-9.3); NEUTROPHILS % (AUTO) 64.6 % (40.0-70.0); PLATELET COUNT (AUTO) 152 K/uL (130-430); RED BLOOD CELL COUNT(AUTO) 4.19 MIL/uL (4.2-6.2); RED CELL DISTRIBUTION WIDTH 15.6 % (9.0-15.0); WHITE BLOOD COUNT (AUTO) 6.2 K/uL (4.8-10.8)
[2022-04-27 14:15] LABS: ANION GAP 7 (5-15); CALCIUM 8.5 mg/dL (8.4-11.0); CHLORIDE 102 mmol/L (98-107); CREATININE 0.77 mg/dL (0.55-1.30); GLUCOSE 104 mg/dL (70-99); UREA NITROGEN, BLOOD 20 mg/dL (8-21)
[2022-04-27 14:21] LABS: INR 1.1 (0.80-1.20)
[2022-04-27 14:24] LABS: ALANINE AMINOTRANSFERASE 17 U/L (12-78); ALBUMIN 3.1 g/dL (3.4-4.8); ASPARTATE AMINOTRANSFERASE 17 U/L (10-37); TOTAL BILIRUBIN 0.3 mg/dL (0.0-1.0)
[2022-04-27 14:26] LABS: GFR AFRICAN AMERICAN 130 mL/min (>90)
--- NOTE | 2022-04-27 15:31 | NUR ---
COVID AND MRSA SWABS OBTAINED AND SENT TO LAB.
[2022-04-27] MEDS ORDERED: ONDANSETRON HCL 4 MG/2 ML VIAL IVP PRN (16:00)
[2022-04-27] MEDS ORDERED: MORPHINE 2 MG/ML INJ. SYRINGE IVP PRN (16:00)
[2022-04-27] MEDS ORDERED: INSULIN REGULAR, HUMAN 100 UNITS/ML, 3 ML VIAL (humuLIN R) SUBCUT PRN (16:15)
--- NOTE | 2022-04-27 16:24 | NUR ---
Admit bed requested Patient will be admitted to care of . Admitted to TELE unit. Diagnosis CP Inpatient (Yes or No) YES Observation (Yes or No) NO Orientation concerns or request close to nursing station (Yes or No) NO Covid Status NEGATIVE On vent or bipap NO Isolation requirements NO Needs a sitter NO From Home (Yes or if No enter name of facility) [facility] Requires Dialysis (Yes or No) NO Med Rec Completed (Yes of No) YES
--- NOTE | 2022-04-27 17:32 | NUR ---
PATIENT REMAINS IN BED IN [facility], AWAITING FOR BED ASSIGNMENT, WILL CONTINUE TO MONITOR.
--- NOTE | 2022-04-27 18:30 | NUR ---
PATIENT ATE DINNER.
--- NOTE | 2022-04-27 18:58 | NUR ---
PATIENT DIAPER CHANGED AND SHEETS. PATIENT REPOSITIONNED.
--- NOTE | 2022-04-27 19:30 | NUR ---
REPORT TAKEN FROM PASQUALE SOLOMON PER STOCKING INSPECTOR WAITING ON PRIMARY RN TO ARRIVE
--- NOTE | 2022-04-27 19:56 | NUR ---
PT COMPLAINING OF PAIN. MEDICATED WITH PRN MED. PT STATES PAIN IN BACK. ATTEMPTED TO REPOSITION WITHOUT RELIEF.
[2022-04-27] MEDS ORDERED: ACET325T PO (21:57)
[2022-04-27] MEDS ORDERED: AMLO5TAB4 PO (21:58)
[2022-04-27] MEDS ORDERED: ALBU2.5V7 INH (21:59)
[2022-04-27] MEDS ORDERED: GLIP5TAB26 PO (22:00)
[2022-04-27] MEDS ORDERED: APIX5TAB4 PO (22:00)
--- NOTE | 2022-04-27 22:00 | NUR ---
pt is resting in bed, awake and oriented x 4. uable to ambulate. pt denies pain
[2022-04-27] MEDS ORDERED: XALEYE OP (22:01)
[2022-04-27] MEDS ORDERED: SENN-298 PO (22:08)
[2022-04-27] MEDS ORDERED: SERT-436 PO (22:09)
[2022-04-27] MEDS ORDERED: SUCR1ORA15 PO (22:09)
[2022-04-27] MEDS ORDERED: METH-374 PO (22:10)
[2022-04-27] MEDS ORDERED: INSU100V7 SUBCUT (22:15)
[2022-04-27] MEDS ORDERED: ACET12.56 PO (22:23)
--- NOTE | 2022-04-27 23:00 | NUR ---
Antonio reilly in [facility] - 04/28/22 at 0109 by [email or web address] pt is tranfered to the floor
--- NOTE | 2022-04-27 23:00 | NUR ---
Patient will be admitted to care of . Admitted to telemetry unit. Will go to room 123 B. Belongings list completed. Complete and up to date summary report printed. SBAR report to be given at bedside with opportunity for questions.
--- NOTE | 2022-04-27 23:30 | NUR ---
ADMISSION NOTE Received patient from ER via gurney. Patient admitted with diagnosis of CHEST PAIN. Patient is awake, alert, oriented X 4. Patient oriented to hospital room, call light, toileting, pain management and safety-teach back done. Patient informed that Elpidio will be the nurse and that their room number is 123B. Personal belongings checked and Belongings List documented. Call light within reach.
[2022-04-27 23:38] VITALS: BP_SYST 114
[2022-04-27] MEDS: ATORVASTATIN 20 MG TABLET PO SCH (23:48)
[2022-04-27] MEDS: APIXABAN 2.5 MG TABLET PO SCH (23:48)
[2022-04-28] VITALS (8 sets, daily range): BP systolic 98–121
--- NOTE | 2022-04-28 01:06 | NUR ---
Note undone in EDM - 04/28/22 at 0110 by [email or web address] Patient given written and verbal discharge instructions and verbalizes understanding. ER discussed with patient the results and treatment provided. Patient in stable condition. ID arm band removed. Rx of antibiotic given. Patient educated on pain management and to follow up with PMD. Pain Scale . Opportunity for questions provided and answered. Medication side effect fact sheet provided.
--- NOTE | 2022-04-28 06:44 | NUR ---
CLOSING NOTES: Patient is in bed resting no s/s of distress is noted at this time, patient is easily aroused. Chest rise is even and unlabored on RA, patient is able to verbalize needs and has call light within reach. All current shift needs have been met, patient is stable at this time and safety measures remain in place as per protocol. Will differ care to AM shift for continuity of care.
[2022-04-28 08:38] LABS: BASOPHILS # (AUTO) 0.1 K/uL (0.0-0.2); BASOPHILS % (AUTO) 1.9 % (0.0-2.0); EOSINOPHILS # (AUTO) 0.5 K/uL (0.0-0.4); EOSINOPHILS % (AUTO) 7.6 % (0.0-4.0); HEMATOCRIT 37.2 % (36-54); HEMOGLOBIN 12.2 g/dL (14.0-18.0); LYMPHOCYTES % (AUTO) 31.7 % (20.5-51.5); MEAN CORPUSCULAR HEMOGLOBIN 28 pg (27-31); MEAN CORPUSCULAR HGB CONC 33 % (32-36); MEAN CORPUSCULAR VOLUME 85 fL (79.0-98.0); MONOCYTES # (AUTO) 0.5 K/uL (0.0-1.0); NEUTROPHILS # (AUTO) 3.2 K/uL (1.8-7.7); NEUTROPHILS % (AUTO) 50.8 % (40.0-70.0); PLATELET COUNT (AUTO) 169 K/uL (130-430); RED BLOOD CELL COUNT(AUTO) 4.37 MIL/uL (4.2-6.2); RED CELL DISTRIBUTION WIDTH 15.4 % (9.0-15.0); WHITE BLOOD COUNT (AUTO) 6.3 K/uL (4.8-10.8)
[2022-04-28] MEDS: APIXABAN 2.5 MG TABLET PO SCH ×2 (08:40→19:41)
[2022-04-28 09:09] LABS: ALBUMIN 3.2 g/dL (3.4-4.8); CALCIUM 9.4 mg/dL (8.4-11.0); CREATININE 0.78 mg/dL (0.55-1.30); TOTAL BILIRUBIN 0.3 mg/dL (0.0-1.0)
--- NOTE | 2022-04-28 09:30 | NUR ---
PT ASSISTED TO BS COMMODE. PT IS MAX ASSIST DUE TO WEAKNESS. NOTED THAT PT UNABLE TO STAND FROM SITTING POSITION. NEEDS ASSIST. Addendum: 04/28/22 at 1415 by Harpreet Prieto RN WRONG ENTRY, THIS NOTE BELONGS TO ANOTHER PT.
--- NOTE | 2022-04-28 14:16 | NUR ---
PAGED DR MORALES TO CHECK IF PT IS OKAY TO DC BACK TO FACILITY.
--- NOTE | 2022-04-28 14:20 | NUR ---
DR MORALES CALLED BACK AND SAID OKAY TO DC BACK PT TO FACILITY.
--- NOTE | 2022-04-28 14:20 | NUR ---
ORDERED D/C BACK TO SNF. CONFIRMED WITH NELLY KENNEDY THAT HIS BED IS RM 12B. CALLED [facility]/HCP NACHO BREWER TO ARRANGE AMBULANCE TRANSPORT.
--- NOTE | 2022-04-28 15:40 | NUR ---
[facility]CP CM [facility] CALLED TRANSPORT INFO; [facility] ([phone]) WILL TRANSPORT PT AT [address] GOING TO [facility] RM 12B.
--- NOTE | 2022-04-28 17:04 | NUR ---
ASSISTED PT WITH DIAPER CHANGE, PT HAD VOIDED. PT MADE AWARE OF DC TONIGHT AROUND 930PM.
--- NOTE | 2022-04-28 19:33 | NUR ---
PT ON STABLE CONDITION. PT GOING TO BE DC TONIGHT. ENDORSED TO NIGHT NURSE.
[2022-04-28] MEDS: ATORVASTATIN 20 MG TABLET PO SCH (19:39)
--- NOTE | 2022-04-28 22:40 | NUR ---
CALLED [facility] ([phone]) STATED THEY WILL BE ANOTHER 45 MINS PT WAS SUPPOSED TO GET PICKED UP AT 2130
[2022-04-29 00:15] VITALS: BP_SYST 124
--- NOTE | 2022-04-29 00:30 | NUR ---
pt.transferred return to [facility].v/s assessed@hour of transfer.v/s values wnl.note b/p status.wnl.no c/o pain,nausea. blood glucose assessed@2100p value:133mg/dl.breanna vásquez telephoned.i conveyed pt's data/info report:rochelle.pt.had spoken w dtr/son;juan foote r/e;transfer. to receive pt.@[facility].pt.cleaned diaper applied.sdch id band d/c.i applied the transfer band.all lpt's pertenences accounted for.
== END 2022-04-29 01:55 | disposition still patient (30) ==
LOC: SED 12:21 → INTOOBSV 16:17 → STU 16:17
PROVIDERS: ADMIT Family Medicine; ATTEND Family Medicine
DX: R07.89 Other chest pain (principal); Z20.822 Contact with and (suspected) exposure to COVID-19; I25.10 Atherosclerotic heart disease of native coronary artery without angina pectoris; E11.9 Type 2 diabetes mellitus without complications; I10 Essential (primary) hypertension; M79.7 Fibromyalgia; I48.0 Paroxysmal atrial fibrillation; E66.01 Morbid (severe) obesity due to excess calories; F32.A Depression, unspecified; G20 Parkinson's disease; G62.9 Polyneuropathy, unspecified; Z79.899 Other long term (current) drug therapy; Z79.01 Long term (current) use of anticoagulants; Z79.84 Long term (current) use of oral hypoglycemic drugs; Z74.01 Bed confinement status
CPT/HCPCS: 96374; 80053 ×2; 83880; 85025 ×2; 85379; 85610; 85730; 84484 ×2; 36415 ×2; 93005; 71045; 99285; 87426; 87081; 93306; J1815; J2270; G0378 ×3

== ENCOUNTER 2022-12-26 12:19 | Emergency (ER) | payer BC, MEDICAID ==
[~2022-12-26] VITALS: Ht 182.9 cm; Wt 104.3 kg
[~2022-12-26 12:19] MED LIST changes: +ACET12.56 PO; +ACET325T PO; +ALBU2.5V7 INH; -AMLO5TAB4 PO; -DOCU-156 PO; -GLIP2.5T3 PO; +GLIP5TAB26 PO; +INSU100V7 SUBCUT; -LIP40 PO; -LORA10TA7 PO; +METH-374 PO; -METO-290 PO; -METO25TA6 PO; -MULT-1117 PO; -OMEG1CAP24 PO; -ONDA-8 TL; -PRO40 PO; +SENN-298 PO; +SERT-436 PO; -SERT50TA PO; +SUCR1ORA15 PO; +XALEYE OP
[2022-12-26 12:20] VITALS: BP_SYST 99; PULSE 130; RESP 18; TEMP 98; O2SAT 96
[2022-12-26 13:09] LABS: BASOPHILS # (AUTO) 0.1 K/uL (0.0-0.2); EOSINOPHILS # (AUTO) 0.4 K/uL (0.0-0.4); EOSINOPHILS % (AUTO) 4.9 % (0.0-4.0); HEMATOCRIT 36.6 % (36-54); HEMOGLOBIN 11.9 g/dL (14.0-18.0); LYMPHOCYTES # (AUTO) 1.6 K/uL (1.0-5.5); LYMPHOCYTES % (AUTO) 19.8 % (20.5-51.5); MEAN CORPUSCULAR HEMOGLOBIN 27 pg (27-31); MEAN CORPUSCULAR HGB CONC 32 % (32-36); MEAN CORPUSCULAR VOLUME 84 fL (79.0-98.0); MONOCYTES # (AUTO) 0.7 K/uL (0.0-1.0); MONOCYTES % (AUTO) 8.7 % (1.7-9.3); NEUTROPHILS # (AUTO) 5.2 K/uL (1.8-7.7); NEUTROPHILS % (AUTO) 65.6 % (40.0-70.0); PLATELET COUNT (AUTO) 153 K/uL (130-430); RED BLOOD CELL COUNT(AUTO) 4.36 MIL/uL (4.2-6.2); RED CELL DISTRIBUTION WIDTH 15.1 % (9.0-15.0); WHITE BLOOD COUNT (AUTO) 7.9 K/uL (4.8-10.8)
[2022-12-26 13:45] LABS: CARBON DIOXIDE 25 mmol/L (23-29); CHLORIDE 104 mmol/L (98-107); POTASSIUM 3.8 mmol/L (3.5-5.1); SODIUM SERUM 138 mmol/L (136-145)
[2022-12-26 13:46] LABS: ANION GAP 9 (5-15); CALCIUM 8.1 mg/dL (8.4-11.0); CREATININE 0.84 mg/dL (0.55-1.30); GFR AFRICAN AMERICAN 117 mL/min (>90); GLUCOSE 105 mg/dL (74-106); UREA NITROGEN, BLOOD 25 mg/dL (8-21)
[2022-12-26 13:50] LABS: GFR NON AFRICAN-AMERICAN 97 mL/min (>90)
[2022-12-26 13:55] LABS: PROTHROMBIN TIME 10.8 SECS (9.5-12.5)
[2022-12-26 14:00] LABS: ALBUMIN 2.8 g/dL (3.4-4.8); ASPARTATE AMINOTRANSFERASE 13 U/L (10-37); TOTAL BILIRUBIN 0.3 mg/dL (0.0-1.0); TOTAL PROTEIN, SERUM 6.2 g/dL (6.4-8.3)
[2022-12-26 14:18] LABS: ALANINE AMINOTRANSFERASE 10 U/L (12-78)
[2022-12-26 16:21] VITALS: BP_SYST 110; PULSE 72; RESP 16; TEMP 97.9; O2SAT 97
== END 2022-12-26 16:24 ==
LOC: SED 12:19
DX: R00.2 Palpitations (principal); E11.9 Type 2 diabetes mellitus without complications; K21.9 Gastro-esophageal reflux disease without esophagitis; Z88.2 Allergy status to sulfonamides; Z91.013 Allergy to seafood; Z79.4 Long term (current) use of insulin; Z79.899 Other long term (current) drug therapy
CPT/HCPCS: 36415; 71045; 80053; 83605; 84484; 85025; 85610-TC; 85730-TC; 87040; 93005; 99285

== ENCOUNTER 2023-05-04 22:50 | Emergency (ER) | payer BC, MEDICAID ==
[~2023-05-04] VITALS: Ht 182.9 cm; Wt 113.4 kg
[~2023-05-04 22:50] MED LIST changes: +DICY-14 PO; -DICY10CA13 PO
[2023-05-04 22:55] VITALS: BP_SYST 96; PULSE 60; RESP 19; TEMP 97.9; O2SAT 95
[2023-05-04 23:49] LABS: BILIRUBIN,URINE NEGATIVE (NEGATIVE); BLOOD, URINE NEGATIVE (NEGATIVE); CLARITY/URINE CLEAR (CLEAR); COLOR,URINE YELLOW (YELLOW); GLUCOSE,URINE NEGATIVE (NEGATIVE); KETONES,URINE NEGATIVE (NEGATIVE); LEUKOCYTE ESTERASE ,URINE NEGATIVE (NEGATIVE); NITRITE, URINE NEGATIVE (NEGATIVE); PROTEIN URINE NEGATIVE (NEGATIVE); UROBILINOGEN,URINE 0.2 (0.2-1.0)
[2023-05-05 00:30] LABS: BASOPHILS # (AUTO) 0.2 K/uL (0.0-0.2); BASOPHILS % (AUTO) 1.9 % (0.0-2.0); EOSINOPHILS # (AUTO) 0.5 K/uL (0.0-0.4); EOSINOPHILS % (AUTO) 5.2 % (0.0-4.0); HEMATOCRIT 34.4 % (36-54); HEMOGLOBIN 11.7 g/dL (14.0-18.0); LYMPHOCYTES # (AUTO) 2.3 K/uL (1.0-5.5); LYMPHOCYTES % (AUTO) 26.1 % (20.5-51.5); MEAN CORPUSCULAR HEMOGLOBIN 27 pg (27-31); MEAN CORPUSCULAR HGB CONC 34 % (32-36); MEAN CORPUSCULAR VOLUME 81 fL (79.0-98.0); MONOCYTES # (AUTO) 0.8 K/uL (0.0-1.0); NEUTROPHILS # (AUTO) 5.2 K/uL (1.8-7.7); NEUTROPHILS % (AUTO) 57.8 % (40.0-70.0); PLATELET COUNT (AUTO) 157 K/uL (130-430); RED BLOOD CELL COUNT(AUTO) 4.26 MIL/uL (4.2-6.2); RED CELL DISTRIBUTION WIDTH 15.5 % (9.0-15.0)
[2023-05-05 01:26] LABS: ALBUMIN 2.8 g/dL (3.4-4.8); CALCIUM 7.9 mg/dL (8.4-11.0); CREATININE 0.72 mg/dL (0.55-1.30); POTASSIUM 4.4 mmol/L (3.5-5.1); TOTAL BILIRUBIN 0.4 mg/dL (0.0-1.0); TOTAL PROTEIN, SERUM 5.9 g/dL (6.4-8.3)
[2023-05-05] MEDS ORDERED: ONDANSETRON HCL 4 MG/2 ML VIAL IVP ONE (01:30)
[2023-05-05] MEDS ORDERED: MORPHINE 2 MG/ML INJ. SYRINGE IVP ONE (01:30)
[2023-05-05 02:13] LABS: LIPASE 18 U/L (16-77)
[2023-05-05 09:05] VITALS: BP_SYST 134; PULSE 85; RESP 22; TEMP 98.7; O2SAT 95
== END 2023-05-05 09:00 | disposition home or self-care (01) ==
LOC: SED 22:50
DX: K59.00 Constipation, unspecified (principal); R10.84 Generalized abdominal pain; E11.9 Type 2 diabetes mellitus without complications; K21.9 Gastro-esophageal reflux disease without esophagitis; Z91.013 Allergy to seafood; Z88.2 Allergy status to sulfonamides; Z79.4 Long term (current) use of insulin; Z79.899 Other long term (current) drug therapy
CPT/HCPCS: 99285; 80053; 81001; 83690; 85025; 87040; 84484; 36415; 83605; 81003; 74176; 96374; 96375; 76376; J2405; J2270

== ENCOUNTER 2023-06-21 16:38 | Emergency (ER) | payer BC, MEDICAID ==
[~2023-06-21] VITALS: Ht 182.9 cm; Wt 126.1 kg
[2023-06-21 16:50] VITALS: BP_SYST 106; PULSE 151; RESP 18; TEMP 97; O2SAT 96
[2023-06-21] MEDS ORDERED: NACL 0.9% 1,000 ML IV ONE (17:00)
[2023-06-21] MEDS ORDERED: ADENOSINE 6MG/2ML VIAL ONE (17:15)
[2023-06-21] MEDS: ADENOSINE 6MG/2ML VIAL IVP ONE (17:49)
[2023-06-21] MEDS: dilTIAZem HCL IVP 5 MG/ML VIAL IVP ONE (17:51)
[2023-06-21 18:24] LABS: BASOPHILS # (AUTO) 0.1 K/uL (0.0-0.2); BASOPHILS % (AUTO) 0.8 % (0.0-2.0); EOSINOPHILS # (AUTO) 0.3 K/uL (0.0-0.4); EOSINOPHILS % (AUTO) 4.2 % (0.0-4.0); HEMATOCRIT 36.7 % (36-54); HEMOGLOBIN 12.2 g/dL (14.0-18.0); LYMPHOCYTES # (AUTO) 1.6 K/uL (1.0-5.5); LYMPHOCYTES % (AUTO) 19.7 % (20.5-51.5); MEAN CORPUSCULAR HEMOGLOBIN 27 pg (27-31); MEAN CORPUSCULAR HGB CONC 33 % (32-36); MEAN CORPUSCULAR VOLUME 81 fL (79.0-98.0); MONOCYTES # (AUTO) 0.6 K/uL (0.0-1.0); MONOCYTES % (AUTO) 7.7 % (1.7-9.3); NEUTROPHILS # (AUTO) 5.4 K/uL (1.8-7.7); NEUTROPHILS % (AUTO) 67.6 % (40.0-70.0); PLATELET COUNT (AUTO) 196 K/uL (130-430); RED BLOOD CELL COUNT(AUTO) 4.52 MIL/uL (4.2-6.2); RED CELL DISTRIBUTION WIDTH 15.5 % (9.0-15.0)
[2023-06-21 18:42] LABS: ALBUMIN 2.8 g/dL (3.4-4.8); ANION GAP 10 (5-15); ASPARTATE AMINOTRANSFERASE 14 U/L (10-37); BILIRUBIN,DIRECT 0.1 mg/dL (0.0-0.3); CALCIUM 7.9 mg/dL (8.4-11.0); CARBON DIOXIDE 25 mmol/L (23-29); CHLORIDE 103 mmol/L (98-107); CREATINE KINASE, TOTAL 41 U/L (39-308); CREATININE 0.87 mg/dL (0.55-1.30); GFR AFRICAN AMERICAN 112 mL/min (>90); GFR NON AFRICAN-AMERICAN 93 mL/min (>90); GLUCOSE 93 mg/dL (74-106); POTASSIUM 3.8 mmol/L (3.5-5.1); SODIUM SERUM 138 mmol/L (136-145); TOTAL BILIRUBIN 0.3 mg/dL (0.0-1.0); TOTAL PROTEIN, SERUM 6.4 g/dL (6.4-8.3); UREA NITROGEN, BLOOD 15 mg/dL (8-21)
[2023-06-21 18:44] LABS: INR 1.1 (0.80-1.20)
[2023-06-21 18:56] LABS: ALANINE AMINOTRANSFERASE 14 U/L (12-78)
[2023-06-21 21:07] VITALS: BP_SYST 120; PULSE 71; RESP 18; TEMP 97.1; O2SAT 94
== END 2023-06-21 21:07 | disposition home or self-care (01) ==
LOC: SED 16:38
DX: I47.10 Supraventricular tachycardia, unspecified (principal); K21.9 Gastro-esophageal reflux disease without esophagitis; E11.9 Type 2 diabetes mellitus without complications; Z88.2 Allergy status to sulfonamides; Z79.899 Other long term (current) drug therapy
CPT/HCPCS: 99291; 96374; 80076; 80048; 82550; 83880; 85025; 85610; 85730; 84484; 36415; 93005; 71045; J0153

== ENCOUNTER 2023-07-26 17:40 | Observation (INO) | payer BC, MEDICAID ==
[~2023-07-26] VITALS: Ht 182.9 cm; Wt 123.4 kg
[2023-07-26 17:40] VITALS: BP_SYST 102; PULSE 154; RESP 18; TEMP 97.5; O2SAT 94
[2023-07-26] MEDS: dilTIAZem HCL IVP 5 MG/ML VIAL IVP ONE (18:41)
[2023-07-26] MEDS: DILTIAZEM HCL 60 MG TABLET PO ONE (18:42)
[2023-07-26] MEDS ORDERED: LACT10SO7 PO (18:51)
[2023-07-26] MEDS ORDERED: AMLO5TAB92 PO (18:51)
[2023-07-26] MEDS ORDERED: TRAM50TA2 PO (18:53)
[2023-07-26] MEDS ORDERED: CHOL50006 PO (19:02)
[2023-07-26] MEDS ORDERED: NITR0.4T47 SL (19:02)
[2023-07-26] MEDS ORDERED: METO25TA6 PO (19:02)
[2023-07-26] MEDS ORDERED: DOCU-192 PO (19:02)
[2023-07-26 19:18] LABS: BASOPHILS % (AUTO) 0.3 % (0.0-2.0); EOSINOPHILS # (AUTO) 0.4 K/uL (0.0-0.4); HEMATOCRIT 37.8 % (36-54); HEMOGLOBIN 12.7 g/dL (14.0-18.0); LYMPHOCYTES # (AUTO) 2.2 K/uL (1.0-5.5); LYMPHOCYTES % (AUTO) 26.5 % (20.5-51.5); MEAN CORPUSCULAR HEMOGLOBIN 27 pg (27-31); MEAN CORPUSCULAR HGB CONC 34 % (32-36); MEAN CORPUSCULAR VOLUME 79 fL (79.0-98.0); MONOCYTES # (AUTO) 0.7 K/uL (0.0-1.0); NEUTROPHILS % (AUTO) 60.2 % (40.0-70.0); PLATELET COUNT (AUTO) 203 K/uL (130-430); RED BLOOD CELL COUNT(AUTO) 4.77 MIL/uL (4.2-6.2); RED CELL DISTRIBUTION WIDTH 15.8 % (9.0-15.0); WHITE BLOOD COUNT (AUTO) 8.2 K/uL (4.8-10.8)
[2023-07-26 19:39] LABS: ANION GAP 10 (5-15); CALCIUM 8.8 mg/dL (8.4-11.0); CARBON DIOXIDE 25 mmol/L (23-29); CHLORIDE 101 mmol/L (98-107); CREATININE 0.86 mg/dL (0.55-1.30); GFR AFRICAN AMERICAN 114 mL/min (>90); GFR NON AFRICAN-AMERICAN 94 mL/min (>90); GLUCOSE 117 mg/dL (74-106); POTASSIUM 4.1 mmol/L (3.5-5.1); SODIUM SERUM 136 mmol/L (136-145); UREA NITROGEN, BLOOD 17 mg/dL (8-21)
[2023-07-26 20:57] LABS: INR 1.1 (0.80-1.20); PROTHROMBIN TIME 10.9 SECS (9.5-12.5)
[2023-07-27] VITALS (8 sets, daily range): BP systolic 100–154; PULSE 51–105; RESP 16–19; TEMP 96.9–97.8; O2SAT 95–99
[2023-07-27 08:17] LABS: BASOPHILS # (AUTO) 0.1 K/uL (0.0-0.2); BASOPHILS % (AUTO) 0.9 % (0.0-2.0); EOSINOPHILS # (AUTO) 0.5 K/uL (0.0-0.4); EOSINOPHILS % (AUTO) 6.1 % (0.0-4.0); HEMATOCRIT 36.9 % (36-54); LYMPHOCYTES # (AUTO) 2.1 K/uL (1.0-5.5); LYMPHOCYTES % (AUTO) 27.7 % (20.5-51.5); MEAN CORPUSCULAR HEMOGLOBIN 27 pg (27-31); MEAN CORPUSCULAR HGB CONC 33 % (32-36); MEAN CORPUSCULAR VOLUME 81 fL (79.0-98.0); MONOCYTES # (AUTO) 0.6 K/uL (0.0-1.0); MONOCYTES % (AUTO) 7.9 % (1.7-9.3); NEUTROPHILS # (AUTO) 4.3 K/uL (1.8-7.7); NEUTROPHILS % (AUTO) 57.4 % (40.0-70.0); PLATELET COUNT (AUTO) 232 K/uL (130-430); RED BLOOD CELL COUNT(AUTO) 4.54 MIL/uL (4.2-6.2); RED CELL DISTRIBUTION WIDTH 15.6 % (9.0-15.0); WHITE BLOOD COUNT (AUTO) 7.4 K/uL (4.8-10.8)
[2023-07-27 08:32] LABS: INR 1.1 (0.80-1.20)
[2023-07-27 08:41] LABS: CALCIUM 8.6 mg/dL (8.4-11.0); CREATININE 0.95 mg/dL (0.55-1.30); POTASSIUM 4.2 mmol/L (3.5-5.1)
[2023-07-27] MEDS: DOCUSATE SODIUM 100 MG CAPSULE PO SCH (08:46)
[2023-07-27] MEDS: METOPROLOL TARTRATE 25 MG TABLET PO SCH (08:47)
[2023-07-27] MEDS: APIXABAN 2.5 MG TABLET PO SCH (08:48)
[2023-07-27] MEDS: SERTRALINE HCL 50 MG TABLET PO SCH (08:49)
[2023-07-27 08:53] LABS: ALBUMIN 2.7 g/dL (3.4-4.8); FREE T4 (FREE THYROXINE) 1.2 ng/dL (0.6-1.6); THYROID STIMULATING HORMONE 2.84 uIu/mL (0.34-4.82); TOTAL BILIRUBIN 0.2 mg/dL (0.0-1.0); TOTAL PROTEIN, SERUM 6.5 g/dL (6.4-8.3)
[2023-07-27] MEDS: methIMAzole 5 MG TABLET PO SCH (08:56)
[2023-07-27] MEDS ORDERED: METOPROLOL TARTRATE 25 MG TABLET PO SCH (09:00)
[2023-07-27 10:17] LABS: BILIRUBIN,URINE NEGATIVE (NEGATIVE); BLOOD, URINE NEGATIVE (NEGATIVE); CLARITY/URINE CLEAR (CLEAR); COLOR,URINE YELLOW (YELLOW); GLUCOSE,URINE NEGATIVE (NEGATIVE); KETONES,URINE NEGATIVE (NEGATIVE); LEUKOCYTE ESTERASE ,URINE NEGATIVE (NEGATIVE); NITRITE, URINE NEGATIVE (NEGATIVE); PROTEIN URINE NEGATIVE (NEGATIVE); UROBILINOGEN,URINE 0.2 (0.2-1.0)
[2023-07-27] MEDS ORDERED: GLIP5TAB13 PO (10:33)
[2023-07-27] MEDS ORDERED: SENN8.6T19 PO (10:33)
[2023-07-27] MEDS ORDERED: SUCR1TAB2 PO (10:33)
[2023-07-27] MEDS ORDERED: MELA3TAB41 PO (10:41)
[2023-07-27] MEDS ORDERED: ONDA4TAB55 PO (10:41)
[2023-07-27] MEDS ORDERED: MOM PO (10:41)
[2023-07-27] MEDS ORDERED: AMIO100T4 PO (12:07)
[2023-07-27] MEDS: traMADol HCL HCL 50 MG TABLET (ULTRAM) PO PRN (12:54)
[2023-07-27] MEDS: METOPROLOL TARTRATE 50 MG TABLET PO SCH (21:00)
[2023-07-27] MEDS: LATANOPROST 2.5 ML DROPS (XALATAN) OP SCH (21:00)
[2023-07-27] MEDS: ATORVASTATIN 20 MG TABLET PO SCH (22:06)
[2023-07-28] VITALS (7 sets, daily range): BP systolic 102–141; PULSE 54–77; RESP 16–18; TEMP 97.6–98.3; O2SAT 96–98
[2023-07-28 07:03] LABS: BASOPHILS # (AUTO) 0.1 K/uL (0.0-0.2); BASOPHILS % (AUTO) 1.4 % (0.0-2.0); EOSINOPHILS # (AUTO) 0.5 K/uL (0.0-0.4); EOSINOPHILS % (AUTO) 7.1 % (0.0-4.0); HEMATOCRIT 37.6 % (36-54); HEMOGLOBIN 12.4 g/dL (14.0-18.0); LYMPHOCYTES % (AUTO) 27.2 % (20.5-51.5); MEAN CORPUSCULAR HEMOGLOBIN 27 pg (27-31); MEAN CORPUSCULAR HGB CONC 33 % (32-36); MEAN CORPUSCULAR VOLUME 81 fL (79.0-98.0); MONOCYTES # (AUTO) 0.7 K/uL (0.0-1.0); MONOCYTES % (AUTO) 8.8 % (1.7-9.3); NEUTROPHILS # (AUTO) 4.1 K/uL (1.8-7.7); NEUTROPHILS % (AUTO) 55.5 % (40.0-70.0); PLATELET COUNT (AUTO) 149 K/uL (130-430); RED BLOOD CELL COUNT(AUTO) 4.65 MIL/uL (4.2-6.2); RED CELL DISTRIBUTION WIDTH 15.5 % (9.0-15.0); WHITE BLOOD COUNT (AUTO) 7.4 K/uL (4.8-10.8)
[2023-07-28 07:22] LABS: CALCIUM 8.6 mg/dL (8.4-11.0); CREATININE 0.78 mg/dL (0.55-1.30); POTASSIUM 4.3 mmol/L (3.5-5.1)
[2023-07-28] MEDS: AMIODARONE HCL 200 MG TABLET PO SCH (09:00)
== END 2023-07-28 17:00 ==
LOC: SED 17:40 → STU 22:23
PROVIDERS: ADMIT Specialist; ATTEND Specialist
DX: I48.0 Paroxysmal atrial fibrillation (principal); E11.40 Type 2 diabetes mellitus with diabetic neuropathy, unspecified; I10 Essential (primary) hypertension; E78.5 Hyperlipidemia, unspecified; E05.90 Thyrotoxicosis, unspecified without thyrotoxic crisis or storm; F32.A Depression, unspecified; G20.A1 Parkinson's disease without dyskinesia, without mention of fluctuations; H40.9 Unspecified glaucoma; I25.10 Atherosclerotic heart disease of native coronary artery without angina pectoris; M79.7 Fibromyalgia; G47.00 Insomnia, unspecified; G70.00 Myasthenia gravis without (acute) exacerbation; M47.9 Spondylosis, unspecified; K21.9 Gastro-esophageal reflux disease without esophagitis; I47.19 Other supraventricular tachycardia; E66.01 Morbid (severe) obesity due to excess calories; Z79.01 Long term (current) use of anticoagulants; Z79.84 Long term (current) use of oral hypoglycemic drugs; Z99.3 Dependence on wheelchair; Z74.01 Bed confinement status; Z79.899 Other long term (current) drug therapy
CPT/HCPCS: 96374; 80048 ×2; 83880 ×2; 85025 ×3; 85610 ×2; 85730; 84484; 36415 ×3; 93005 ×3; 71045; 99285; 80053; 80061; 81001; 83037; 84439; 84443; 87081; 93306; 81003; G0378 ×3; J3490

== ENCOUNTER 2023-08-02 02:35 | Inpatient (IN) | payer BC, MEDICAID ==
[~2023-08-02] VITALS: Ht 182.9 cm; Wt 118.4 kg
[~2023-08-02 02:35] MED LIST changes: -ACET12.56 PO; -ALBU2.5V7 INH; +AMIO100T4 PO; +AMLO5TAB92 PO; -ATOR40TA68 PO; +CHOL50006 PO; +DOCU-192 PO; +GLIP5TAB13 PO; -GLIP5TAB26 PO; +LACT10SO7 PO; +MELA3TAB41 PO; -METH-374 PO; +MOM PO; +NITR0.4T47 SL; +ONDA4TAB55 PO; -SENN-298 PO; +SENN8.6T19 PO; -SERT-436 PO; -SUCR1ORA15 PO; +SUCR1TAB2 PO; +TRAM50TA2 PO
[2023-08-02] MEDS: dilTIAZem HCL IVP 5 MG/ML VIAL IVP ONE (02:59)
[2023-08-02 03:01] VITALS: BP_SYST 76; PULSE 140; RESP 16; TEMP 98; O2SAT 98
[2023-08-02 03:19] LABS: BASOPHILS # (AUTO) 0.1 K/uL (0.0-0.2); EOSINOPHILS # (AUTO) 0.5 K/uL (0.0-0.4); EOSINOPHILS % (AUTO) 6.2 % (0.0-4.0); HEMATOCRIT 35.6 % (36-54); HEMOGLOBIN 11.7 g/dL (14.0-18.0); LYMPHOCYTES # (AUTO) 2.4 K/uL (1.0-5.5); LYMPHOCYTES % (AUTO) 31.7 % (20.5-51.5); MEAN CORPUSCULAR HEMOGLOBIN 27 pg (27-31); MEAN CORPUSCULAR HGB CONC 33 % (32-36); MEAN CORPUSCULAR VOLUME 80 fL (79.0-98.0); MONOCYTES # (AUTO) 0.5 K/uL (0.0-1.0); NEUTROPHILS # (AUTO) 4.1 K/uL (1.8-7.7); NEUTROPHILS % (AUTO) 54.1 % (40.0-70.0); PLATELET COUNT (AUTO) 194 K/uL (130-430); RED BLOOD CELL COUNT(AUTO) 4.43 MIL/uL (4.2-6.2); RED CELL DISTRIBUTION WIDTH 15.7 % (9.0-15.0); WHITE BLOOD COUNT (AUTO) 7.5 K/uL (4.8-10.8)
[2023-08-02 03:29] LABS: ANION GAP 7 (5-15); CALCIUM 8.2 mg/dL (8.4-11.0); CARBON DIOXIDE 28 mmol/L (23-29); CHLORIDE 102 mmol/L (98-107); CREATININE 0.93 mg/dL (0.55-1.30); GFR AFRICAN AMERICAN 104 mL/min (>90); GLUCOSE 98 mg/dL (74-106); SODIUM SERUM 137 mmol/L (136-145); UREA NITROGEN, BLOOD 17 mg/dL (8-21)
[2023-08-02 03:34] LABS: GFR NON AFRICAN-AMERICAN 86 mL/min (>90)
[2023-08-02 03:36] LABS: ALANINE AMINOTRANSFERASE 3 U/L (12-78); ALBUMIN 2.6 g/dL (3.4-4.8); ASPARTATE AMINOTRANSFERASE < 5 U/L (10-37); TOTAL BILIRUBIN 0.2 mg/dL (0.0-1.0); TOTAL PROTEIN, SERUM 6.1 g/dL (6.4-8.3)
[2023-08-02] MEDS ORDERED: HYDROcodone/ACETAMIN 5-325 MG TAB (NORCO/ VICODIN) PO PRN ×2 (05:45→10:15)
[2023-08-02] MEDS: METOPROLOL TARTRATE 25 MG TABLET PO SCH (09:00)
[2023-08-02] MEDS ORDERED: ACETAMINOPHEN 325 MG TABLET PO PRN ×2 (10:15→10:30)
[2023-08-02] MEDS ORDERED: MORPHINE 2 MG/ML INJ. SYRINGE IVP PRN (10:15)
[2023-08-02] MEDS ORDERED: NALOXONE HCL 0.4 MG/ML AMP (NARCAN) IVP PRN (10:15)
[2023-08-02] MEDS ORDERED: ONDANSETRON HCL 4 MG/2 ML VIAL IVP PRN (10:15)
[2023-08-02] MEDS ORDERED: HYDROcodone/ACETAMIN 10-325 MG TAB PO PRN (10:15)
[2023-08-02 10:22] LABS: BASOPHILS # (AUTO) 0.1 K/uL (0.0-0.2); BASOPHILS % (AUTO) 1.1 % (0.0-2.0); EOSINOPHILS # (AUTO) 0.5 K/uL (0.0-0.4); EOSINOPHILS % (AUTO) 6.6 % (0.0-4.0); HEMATOCRIT 35.4 % (36-54); HEMOGLOBIN 11.7 g/dL (14.0-18.0); LYMPHOCYTES % (AUTO) 27.8 % (20.5-51.5); MEAN CORPUSCULAR HEMOGLOBIN 27 pg (27-31); MEAN CORPUSCULAR HGB CONC 33 % (32-36); MEAN CORPUSCULAR VOLUME 81 fL (79.0-98.0); MONOCYTES # (AUTO) 0.6 K/uL (0.0-1.0); MONOCYTES % (AUTO) 9.2 % (1.7-9.3); NEUTROPHILS # (AUTO) 3.9 K/uL (1.8-7.7); NEUTROPHILS % (AUTO) 55.3 % (40.0-70.0); PLATELET COUNT (AUTO) 205 K/uL (130-430); RED BLOOD CELL COUNT(AUTO) 4.37 MIL/uL (4.2-6.2); RED CELL DISTRIBUTION WIDTH 15.7 % (9.0-15.0); WHITE BLOOD COUNT (AUTO) 7.1 K/uL (4.8-10.8)
[2023-08-02] MEDS: amLODIPine BESYLATE 5 MG TABLET PO ONE (10:32)
[2023-08-02 10:40] LABS: CALCIUM 8.5 mg/dL (8.4-11.0); CREATININE 0.82 mg/dL (0.55-1.30); TOTAL BILIRUBIN 0.2 mg/dL (0.0-1.0)
[2023-08-02 10:57] LABS: ALBUMIN 2.6 g/dL (3.4-4.8); TOTAL PROTEIN, SERUM 6.3 g/dL (6.4-8.3)
[2023-08-02] MEDS: APIXABAN 2.5 MG TABLET PO ONE (11:16)
[2023-08-02] MEDS: AMIODARONE HCL 200 MG TABLET PO ONE ×2 (11:17→17:21)
[2023-08-02] MEDS ORDERED: DEXTROSE 50% JECT 50 ML DISP.SYRIN IVP PRN (13:15)
[2023-08-02] MEDS ORDERED: INSULIN REGULAR, HUMAN 100 UNITS/ML, 3 ML VIAL (humuLIN R) SUBCUT PRN (13:15)
[2023-08-02] MEDS ORDERED: GLUCOSE (DEXTROSE) ORAL GEL -Adults PO PRN (13:15)
[2023-08-02] MEDS ORDERED: AMIO100T4 PO (14:13)
[2023-08-02 21:15] VITALS: O2SAT 98
[2023-08-02 21:56] VITALS: BP_SYST 115; PULSE 61; RESP 20; TEMP 97.9
[2023-08-02] MEDS: AMIODARONE HCL 200 MG TABLET PO SCH (23:45)
[2023-08-02] MEDS: APIXABAN 2.5 MG TABLET PO SCH (23:55)
[2023-08-03] MEDS: MELATONIN 3 MG TABLET PO SCH (00:04)
[2023-08-03 05:30] VITALS: BP_SYST 131; PULSE 61; RESP 20; TEMP 97.9; O2SAT 96
[2023-08-03 06:34] LABS: BASOPHILS # (AUTO) 0.1 K/uL (0.0-0.2); BASOPHILS % (AUTO) 1.2 % (0.0-2.0); EOSINOPHILS # (AUTO) 0.5 K/uL (0.0-0.4); HEMATOCRIT 33.3 % (36-54); HEMOGLOBIN 11.1 g/dL (14.0-18.0); LYMPHOCYTES # (AUTO) 1.9 K/uL (1.0-5.5); LYMPHOCYTES % (AUTO) 26.3 % (20.5-51.5); MEAN CORPUSCULAR HEMOGLOBIN 27 pg (27-31); MEAN CORPUSCULAR HGB CONC 33 % (32-36); MEAN CORPUSCULAR VOLUME 81 fL (79.0-98.0); MONOCYTES # (AUTO) 0.6 K/uL (0.0-1.0); MONOCYTES % (AUTO) 8.4 % (1.7-9.3); NEUTROPHILS # (AUTO) 4.1 K/uL (1.8-7.7); NEUTROPHILS % (AUTO) 57.1 % (40.0-70.0); PLATELET COUNT (AUTO) 142 K/uL (130-430); RED BLOOD CELL COUNT(AUTO) 4.14 MIL/uL (4.2-6.2); RED CELL DISTRIBUTION WIDTH 15.4 % (9.0-15.0); WHITE BLOOD COUNT (AUTO) 7.2 K/uL (4.8-10.8)
[2023-08-03 07:06] LABS: ALBUMIN 2.6 g/dL (3.4-4.8); CALCIUM 8.5 mg/dL (8.4-11.0); CREATININE 0.77 mg/dL (0.55-1.30); POTASSIUM 4.5 mmol/L (3.5-5.1); TOTAL BILIRUBIN 0.1 mg/dL (0.0-1.0); TOTAL PROTEIN, SERUM 6.3 g/dL (6.4-8.3)
[2023-08-03 08:00] VITALS: O2SAT 98
[2023-08-03] MEDS ORDERED: AMIODARONE HCL 200 MG TABLET PO SCH (09:00)
[2023-08-03] MEDS ORDERED: amLODIPine BESYLATE 5 MG TABLET PO SCH (09:00)
[2023-08-03 11:11] VITALS: BP_SYST 116; PULSE 61; RESP 16; TEMP 96.4; O2SAT 95
[2023-08-03] MEDS ORDERED: AMIO200T68 PO (14:30)
[2023-08-03 15:16] VITALS: BP_SYST 134; PULSE 63; RESP 16; TEMP 96.7; O2SAT 97
== END 2023-08-03 15:40 | DRG 308 ==
LOC: SED 02:35 → STU 05:33
PROVIDERS: ADMIT Family Medicine; ATTEND Family Medicine
DX: I47.19 Other supraventricular tachycardia (principal); E43 Unspecified severe protein-calorie malnutrition; I48.20 Chronic atrial fibrillation, unspecified; I95.9 Hypotension, unspecified; I10 Essential (primary) hypertension; E66.9 Obesity, unspecified; F32.A Depression, unspecified; E11.42 Type 2 diabetes mellitus with diabetic polyneuropathy; E05.90 Thyrotoxicosis, unspecified without thyrotoxic crisis or storm; K59.00 Constipation, unspecified; Z86.73 Personal history of transient ischemic attack (TIA), and cerebral infarction without residual deficits; Z79.899 Other long term (current) drug therapy; Z68.35 Body mass index [BMI] 35.0-35.9, adult; Z88.1 Allergy status to other antibiotic agents
CPT/HCPCS: 36415; 71045; 80053; 82948; 83880; 84484; 85025; 85379; 96374; 97530-GP; 99291; G0378; J3490